=== PATIENT | female | born 1980 | race American Indian/Alaskan Native ===

== ENCOUNTER 2018-10-02 23:01 | Inpatient (IN) | payer MEDICAID ==
[2018-10-02] MEDS ORDERED: D50W (25GM) Syringe IV PRN (23:35)
[2018-10-02] MEDS ORDERED: NACL 0.9% 1000 ML 1,000 ML IV ONE (23:35)
[2018-10-02] MEDS ORDERED: REGLAN IV ONE (23:37)
--- NOTE | 2018-10-02 23:41 | Emergency Department Report ---
ED General Adult HPI - General Chief complaint: Hyperglycemia Stated complaint: HYPERGLYCEMIA Time Seen by Provider: 10/02/18 23:26 Source: patient, EMS Mode of arrival: Stretcher Limitations: No Limitations - History of Present Illness Initial comments: Patient is a 38 years old female with a recent diagnosis of diabetes. Patient is noncompliant with her medication. Patient presented to the ER complaining of nausea vomiting and generalized weakness. Strong smell of acetone in the room. Patient also with coughing. The patient denied any fever or chills. No chest pain or shortness of breath. Severity scale (0 -10): 3 - Related Data Previous Rx's Medication Instructions Recorded Last Taken Type Amoxicillin/Potassium Clav 1 each PO BID #20 tablet 07/13/18 Unknown Rx [Augmentin 875-125 Tablet] Insulin Glargine [Lantus VIAL] 50 units SUB-Q QHS #1 vial 07/13/18 Unknown Rx Insulin Lispro [HumaLOG VIAL] 0 units SQ AC #1 vial 07/13/18 Unknown Rx Polyethylene Glycol 3350 [Miralax 17 gm PO BID PRN #60 powd.pack 07/13/18 Unknown Rx 3350] metFORMIN [Glucophage] 500 mg PO BIDDIAB #60 tablet 07/13/18 Unknown Rx oxyCODONE /ACETAMINOPHEN [Percocet 1 tab PO Q6H PRN #14 tablet 07/13/18 Unknown Rx 5/325 mg] Allergies Allergy/AdvReac Type Severity Reaction Status Date / Time sulfamethoxazole Allergy Anaphylaxis Verified 07/08/18 12:12 [From Bactrim] trimethoprim [From Bactrim] Allergy Anaphylaxis Verified 07/08/18 12:12 ED Review of Systems ROS: Stated complaint: HYPERGLYCEMIA Other details as noted in HPI Comment: All other systems reviewed and negative Constitutional: denies: chills, fever Respiratory: cough. denies: orthopnea, shortness of breath, SOB with exertion, SOB at rest, wheezing Cardiovascular: palpitations. denies: chest pain, dyspnea on exertion Gastrointestinal: abdominal pain (burning sensation), nausea, vomiting. denies: diarrhea, constipation, hematemesis, melena, hematochezia Genitourinary: frequency Musculoskeletal: denies: back pain Neurological: weakness (generalized). denies: headache, numbness, paresthesias, confusion, abnormal gait ED Past Medical Hx - Past Medical History Previous Medical History?: Yes Hx Diabetes: Yes - Surgical History Additional Surgical History: - Social History Smoking Status: Never Smoker Substance Use Type: None - Medications Home Medications: Home Medications Medication Instructions Recorded Confirmed Last Taken Type Amoxicillin/Potassium Clav 1 each PO BID #20 tablet 07/13/18 Unknown Rx [Augmentin 875-125 Tablet] Insulin Glargine [Lantus VIAL] 50 units SUB-Q QHS #1 vial 07/13/18 Unknown Rx Insulin Lispro [HumaLOG VIAL] 0 units SQ AC #1 vial 07/13/18 Unknown Rx Polyethylene Glycol 3350 [Miralax 17 gm PO BID PRN #60 powd.pack 07/13/18 Unknown Rx 3350] metFORMIN [Glucophage] 500 mg PO BIDDIAB #60 tablet 07/13/18 Unknown Rx oxyCODONE /ACETAMINOPHEN [Percocet 1 tab PO Q6H PRN #14 tablet 07/13/18 Unknown Rx 5/325 mg] ED Physical Exam - General Limitations: No Limitations General appearance: alert, anxious, in distress - Head Head exam: Present: atraumatic, normocephalic, normal inspection - Eye Eye exam: Present: normal appearance - ENT ENT exam: Present: mucous membranes dry - Neck Neck exam: Present: normal inspection, full ROM. Absent: tenderness, meningismus, lymphadenopathy, thyromegaly - Respiratory Respiratory exam: Present: normal lung sounds bilaterally. Absent: respiratory distress, wheezes, rales, rhonchi, chest wall tenderness, accessory muscle use, decreased breath sounds, prolonged expiratory - Cardiovascular Cardiovascular Exam: Present: tachycardia - GI/Abdominal GI/Abdominal exam: Present: soft, normal bowel sounds. Absent: distended, tenderness, guarding, rebound, rigid, organomegaly, mass, bruit, pulsatile mass, hernia - Extremities Exam Extremities exam: Present: normal inspection, full ROM, normal capillary refill. Absent: tenderness, pedal edema, calf tenderness - Back Exam Back exam: Present: normal inspection, full ROM. Absent: tenderness, CVA tenderness (R), CVA tenderness (L), muscle spasm, paraspinal tenderness, vertebral tenderness - Neurological Exam Neurological exam: Present: alert, oriented X3, CN II-XII intact - Skin Skin exam: Present: warm, dry, intact ED Course Vital Signs 10/02/18 23:18 Temperature 98.7 F Pulse Rate 124 H Respiratory 22 Rate Blood Pressure 172/116 [Left] O2 Sat by Pulse 100 Oximetry - Reevaluation(s) Reevaluation #1: 10/03/18 00:52 Patient evaluated by me multiple times. Patient stated that she is feeling better. ED Medical Decision Making - Lab Data Result diagrams: 10/02/18 23:59 10/02/18 23:59 - Radiology Data Radiology results: report reviewed - Medical Decision Making Patient is a 38 years old female with a recent diagnosis of diabetes. Patient is noncompliant with her medication. Patient presented to the ER complaining of nausea vomiting and generalized weakness. Strong smell of acetone in the room. Patient also with coughing. The patient denied any fever or chills. No chest pain or shortness of breath. Patient found to be in a DKA. Started on insulin drip and fluids. I discussed the patient is Dr. Swann, she agreed to admit the patient to medical service. Critical Care Time: Yes Critical care time in (mins) excluding proc time.: 30 Critical care attestation.: If time is entered above; I have spent that time in minutes in the direct care of this critically ill patient, excluding procedure time. ED Disposition Clinical Impression: DKA (diabetic ketoacidoses), Hyperkalemia Disposition: DC-09 OP ADMIT IP TO THIS HOSP Is pt being admited?: Yes Condition: Stable Instructions: Diabetic Ketoacidosis (ED) Referrals: PRIMARY CARE, [Primary Care Provider] - 3-5 Days
--- NOTE | 2018-10-03 00:11 | XRay Report ---
FINAL REPORT EXAM: XR CHEST ROUTINE 2V HISTORY: cough, DKA COMPARISON: None available. FINDINGS:: Frontal and lateral views of the chest obtained. Cardiac silhouette is within normal limi ts. No focal consolidation or effusion. No pneumothorax. Visualized bony thorax is grossly intact. IMPRESSION:: No acute findings.
[2018-10-03 00:14] LABS: Basophils # (Auto) 0.1 K/mm3 (0.0-0.1); Basophils % (Auto) 0.6 % (0.0-1.8); Lymphocytes # (Auto) 2.1 K/mm3 (1.2-5.4); Lymphocytes % (Auto) 11.8 % (13.4-35.0); Mean Corpuscular HGB Conc 30 % (30-34); Mean Corpuscular Volume 92 fl (79-97); Monocytes # (Auto) 0.6 K/mm3 (0.0-0.8); Monocytes % (Auto) 3.6 % (0.0-7.3); Platelet Count 232 K/mm3 (140-440); Red Blood Count 5.47 M/mm3 (3.65-5.03); Red Cell Distribution Width 16.6 % (13.2-15.2)
[2018-10-03 00:18] LABS: Hematocrit 50.2 % (30.3-42.9); Hemoglobin 15.2 gm/dl (10.1-14.3)
[2018-10-03] MEDS: HumuLIN R 100 UNITS in NACL 0.9% 99 ML IV SCH ×3 (00:22→17:22)
[2018-10-03 00:43] LABS: BUN/Creatinine Ratio 8; Blood Urea Nitrogen 10 mg/dL (7-17); Calcium 8.8 mg/dL (8.4-10.2); Hemolysis Index 17
[2018-10-03 00:47] LABS: Alanine Aminotransferase 21 units/L (7-56); Albumin 4.3 g/dL (3.9-5)
[2018-10-03 00:51] LABS: Bilirubin,Direct < 0.2 mg/dL (0-0.2)
[2018-10-03] MEDS ORDERED: ZOSYN/NS 3.375GM/50ML 3.375 GM/50 ML BAG IV ONE (01:15)
[2018-10-03 01:21] LABS: Bilirubin,Urine NEG (Negative); Blood,Urine LG (Negative); Color,Urine Straw (Yellow); Mucus,Urine FEW /HPF; RBC,Urine > 182.0 /HPF (0.0-6.0); Urobilinogen,Urine < 2.0 mg/dL (<2.0)
[2018-10-03] MEDS ORDERED: NACL 0.9% 1000 ML 1,000 ML IV ONE ×2 (01:46→03:38)
[2018-10-03] MEDS ORDERED: ZOFRAN IV PRN (01:49)
[2018-10-03] MEDS ORDERED: SODIUM CHLORIDE FLUSH SYRINGE 10 ML IV PRN (01:49)
[2018-10-03] MEDS ORDERED: TYLENOL PO PRN (01:49)
[2018-10-03] MEDS ORDERED: MORPHINE IV PRN (01:49)
[2018-10-03] MEDS ORDERED: REGLAN IV PRN (01:49)
[2018-10-03] MEDS ORDERED: D5W/0.45% NACL/KCL 20 MEQ 20 MEQ/1,000 ML BAG IV SCH (02:00)
[2018-10-03 02:10] LABS: BUN/Creatinine Ratio 8; Blood Urea Nitrogen 10 mg/dL (7-17); Calcium 8.8 mg/dL (8.4-10.2); Hemolysis Index 16
[2018-10-03 03:08] LABS: Blood Urea Nitrogen 10 mg/dL (7-17); Calcium 8.8 mg/dL (8.4-10.2)
--- NOTE | 2018-10-03 03:30 | History and Physical Report ---
History of Present Illness Date of examination: 10/03/18 Chief complaint: Nausea and vomiting History of present illness: Patient is a 38-year-old -Cypriot female with history of diabetes mellitus type 2 who presented to the ED on account of 3 days history of nausea with vomiting. She has associated generalized abdominal pain, morning chest pain, constipation, urinary frequency, chills without fever, shortness of breath, palpitation, headaches and lightheadedness. She denies diaphoresis, leg swelling, cough, sore throats, runny nose or congestion, orthopnea or PND. No diarrhea, bleeding from any orifice, syncope or loss of consciousness. Patient admits to being noncompliant with her medication because according to her she has so many medications and does not know when to take them. Past History Past Medical History: diabetes, GERD Past Surgical History: , Other (Lt ankle surgery) Social history: other (patient smoked cigarettes for 5 years but quit a year ago. She denies alcohol or illicit drug use) Family history: diabetes, hypertension Medications and Allergies Allergies Allergy/AdvReac Type Severity Reaction Status Date / Time sulfamethoxazole Allergy Anaphylaxis Verified 07/08/18 12:12 [From Bactrim] trimethoprim [From Bactrim] Allergy Anaphylaxis Verified 07/08/18 12:12 Home Medications Medication Instructions Recorded Confirmed Last Taken Type Amoxicillin/Potassium Clav 1 each PO BID #20 tablet 07/13/18 Unknown Rx [Augmentin 875-125 Tablet] Insulin Glargine [Lantus VIAL] 50 units SUB-Q QHS #1 vial 07/13/18 Unknown Rx Insulin Lispro [HumaLOG VIAL] 0 units SQ AC #1 vial 07/13/18 Unknown Rx Polyethylene Glycol 3350 [Miralax 17 gm PO BID PRN #60 powd.pack 07/13/18 Unknown Rx 3350] metFORMIN [Glucophage] 500 mg PO BIDDIAB #60 tablet 07/13/18 Unknown Rx oxyCODONE /ACETAMINOPHEN [Percocet 1 tab PO Q6H PRN #14 tablet 07/13/18 Unknown Rx 5/325 mg] Active Meds: Active Medications Acetaminophen (Tylenol) 650 mg PO Q4H PRN PRN Reason: Pain MILD(1-3)/Fever >100.5/SANTOS Dextrose (D50w (25gm) Syringe) 0 ml IV PRN PRN PRN Reason: Hypoglycemia Insulin Human Regular 100 (units/ Sodium Chloride) 100 mls @ 1 mls/hr IV TITR ASHA; Protocol Last Titration: 10/03/18 02:03 Dose: 6 units/hr, 6 mls/hr Documented by: Potassium Chloride/Dextrose/Sod Cl (D5w/0.45% Nacl/Kcl 20 Meq) 20 meq in 1,000 mls @ 125 mls/hr IV DIRECT ASHA Ceftriaxone Sodium (Rocephin/Ns 1 Gm/50 Ml) 1 gm in 50 mls @ 100 mls/hr IV Q24HR ASHA; Protocol Metoclopramide HCl (Reglan) 10 mg IV Q6H PRN PRN Reason: Nausea And Vomiting Morphine Sulfate (Morphine) 2 mg IV Q4H PRN PRN Reason: Pain, Moderate (4-6) Ondansetron HCl (Zofran) 4 mg IV Q8H PRN PRN Reason: Nausea And Vomiting Sodium Chloride (Sodium Chloride Flush Syringe 10 Ml) 10 ml IV BID ASHA Sodium Chloride (Sodium Chloride Flush Syringe 10 Ml) 10 ml IV PRN PRN PRN Reason: LINE FLUSH Review of Systems All systems: negative (except as documented in HPI, all other systems were reviewed and negative) Exam - Constitutional Vitals: Temp Pulse Resp BP Pulse Ox 98.7 F 124 H 22 172/116 100 10/02/18 23:18 10/02/18 23:18 10/02/18 23:18 10/02/18 23:18 10/02/18 23:18 General appearance: Present: no acute distress - EENT Eyes: Present: PERRL, EOM intact ENT: hearing intact, clear oral mucosa - Neck Neck: Present: supple, normal ROM - Respiratory Respiratory effort: normal Respiratory: bilateral: CTA - Cardiovascular Rhythm: regular (tachycardia) Heart Sounds: Present: S1 & S2. Absent: rub, click - Extremities Extremities: No edema Peripheral Pulses: within normal limits - Abdominal General gastrointestinal: Present: soft, non-tender, non-distended, normal bowel sounds Female genitourinary: Present: deferred - Integumentary Integumentary: Present: clear, warm, dry - Musculoskeletal Musculoskeletal: gait normal, strength equal bilaterally - Psychiatric Psychiatric: appropriate mood/affect, intact judgment & insight - Neurologic Neurologic: CNII-XII intact, moves all extremities Results - Labs CBC & Chem 7: 02/26/19 23:59 10/03/18 02:24 Labs: Laboratory Last Values WBC 17.6 K/mm3 (4.5-11.0) H 10/02/18 23:59 RBC 5.47 M/mm3 (3.65-5.03) H 10/02/18 23:59 Hgb 15.2 gm/dl (10.1-14.3) H 10/02/18 23:59 Hct 50.2 % (30.3-42.9) H 10/02/18 23:59 MCV 92 fl (79-97) 10/02/18 23:59 MCH 28 pg (28-32) 10/02/18 23:59 MCHC 30 % (30-34) 10/02/18 23:59 RDW 16.6 % (13.2-15.2) H 10/02/18 23:59 Plt Count 232 K/mm3 (140-440) 10/02/18 23:59 Lymph % (Auto) 11.8 % (13.4-35.0) L 10/02/18 23:59 [place] % (Auto) 3.6 % (0.0-7.3) 10/02/18 23:59 Eos % (Auto) 0.0 % (0.0-4.3) 10/02/18 23:59 Baso % (Auto) 0.6 % (0.0-1.8) 10/02/18 23:59 Lymph # 2.1 K/mm3 (1.2-5.4) 10/02/18 23:59 [place] # 0.6 K/mm3 (0.0-0.8) 10/02/18 23:59 Eos # 0.0 K/mm3 (0.0-0.4) 10/02/18 23:59 Baso # 0.1 K/mm3 (0.0-0.1) 10/02/18 23:59 Seg Neutrophils % 84.0 % (40.0-70.0) H 10/02/18 23:59 Seg Neutrophils # 14.8 K/mm3 (1.8-7.7) H 10/02/18 23:59 Sodium 135 mmol/L (137-145) L 10/03/18 02:24 Potassium 5.1 mmol/L (3.6-5.0) H 10/03/18 01:27 Chloride 104.4 mmol/L (98-107) 10/03/18 02:24 Carbon Dioxide 5 mmol/L (22-30) L* 10/03/18 01:27 Anion Gap 34 mmol/L 10/03/18 01:27 BUN 10 mg/dL (7-17) 10/03/18 02:24 Creatinine 1.2 mg/dL (0.7-1.2) 10/03/18 01:27 Estimated GFR > 60 ml/min 10/03/18 01:27 BUN/Creatinine Ratio 8 % 10/03/18 01:27 Glucose 418 mg/dL (65-100) H 10/03/18 02:24 POC Glucose 382 (70-105) H 10/03/18 03:24 Calcium 8.8 mg/dL (8.4-10.2) 10/03/18 02:24 Phosphorus 5.70 mg/dL (2.5-4.5) H 10/02/18 23:59 Magnesium 2.20 mg/dL (1.7-2.3) 10/02/18 23:59 Total Bilirubin < 0.20 mg/dL (0.1-1.2) 10/02/18 23:59 Direct Bilirubin < 0.2 mg/dL (0-0.2) 10/02/18 23:59 Indirect Bilirubin 0.0 mg/dL 10/02/18 23:59 AST 15 units/L (5-40) 10/02/18 23:59 ALT 21 units/L (7-56) 10/02/18 23:59 Alkaline Phosphatase 189 units/L (35-129) H 10/02/18 23:59 Troponin T < 0.010 ng/mL (0.00-0.029) 10/02/18 23:59 Total Protein 8.1 g/dL (6.3-8.2) 10/02/18 23:59 Albumin 4.3 g/dL (3.9-5) 10/02/18 23:59 Albumin/Globulin Ratio 1.1 % 10/02/18 23:59 Urine Color Straw (Yellow) 10/03/18 00:23 Urine Turbidity Clear (Clear) 10/03/18 00:23 Urine pH 5.0 (5.0-7.0) 10/03/18 00:23 Ur Specific [place] 1.025 (1.003-1.030) 10/03/18 00:23 Urine Protein 100 mg/dl mg/dL (Negative) 10/03/18 00:23 Urine Glucose (UA) >=500 mg/dL (Negative) 10/03/18 00:23 Urine Ketones 80 mg/dL (Negative) 10/03/18 00:23 Urine Blood Lg (Negative) 10/03/18 00:23 Urine Nitrite Neg (Negative) 10/03/18 00:23 Urine Bilirubin Neg (Negative) 10/03/18 00:23 Urine Urobilinogen < 2.0 mg/dL (<2.0) 10/03/18 00:23 Ur Leukocyte Esterase Neg (Negative) 10/03/18 00:23 Urine WBC (Auto) 17.0 /HPF (0.0-6.0) H 10/03/18 00:23 Urine RBC (Auto) > 182.0 /HPF (0.0-6.0) 10/03/18 00:23 U Epithel Cells (Auto) < 1.0 /HPF (0-13.0) 10/03/18 00: Urine Mucus Few /HPF 10/03/18 00:23 Assessment and Plan Assessment and plan: DM2 with DKA -Admit to the ICU on DKA protocol -will check hba1c level Sepsis, probably secondary to UTI -On IV antibiotic with Rocephin -Blood and urine cultures pending Severe metabolic acidosis -Will check ABG to determine if to give IV bicarbonate Medication noncompliance -Diabetic education needed Hyperphosphatemia -We will hydrate patient and monitor level GERD -On Protonix Elevated blood pressure without prior diagnosis of hypertension -On PRN Labetalol DVT prophylaxis with SCD Disposition: I spent 45 minutes providing critical care to this seriously ill patient who requires frequent reassessments of her metabolic profile.
[2018-10-03] MEDS ORDERED: NORMODYNE IV PRN (03:42)
[2018-10-03] MEDS ORDERED: NACL 0.9% 1000 ML 1,000 ML IV SCH (04:00)
[2018-10-03 04:26] LABS: BUN/Creatinine Ratio 8; Hemolysis Index 4
[2018-10-03] MEDS ORDERED: SODIUM BICARBONATE IV SCH (05:00)
[2018-10-03] MEDS ORDERED: D5W IV SCH (05:00)
[2018-10-03] MEDS ORDERED: SODIUM BICARBONATE 150 MEQ, KCL 20 MEQ in D5W 1,000 ML IV SCH (05:00)
[2018-10-03] MEDS ORDERED: KCL IV SCH (05:00)
[2018-10-03] MEDS ORDERED: ZOFRAN ONE (05:40)
[2018-10-03] MEDS ORDERED: NACL 0.9% 1000 ML 1,000 ML ONE (05:40)
[2018-10-03] MEDS ORDERED: PROTONIX IV ONE (05:41)
[2018-10-03] MEDS: PROTONIX IV SCH ×2 (05:53→11:05)
--- NOTE | 2018-10-03 08:13 | Progress Note ---
Assessment and Plan Assessment and plan: Patient is a 38 yo woman with a history of obesity, tobacco dependency, MSSA bilateral leg cellulitis with abscess and Type I DM after DKA episode in 07/2018 who presented to [facility] with n/v/weakness and cough. She was admitted to ICU for DKA with pH of only 6.952/co2 9.5/po2 128/hco3 2.1 on RA. Noncompliance with DM medication documented in ED. -DKA, severe: treat with IV insulin drip with close monitor, IVF -Metabolic acidosis, severe: consult CCM -WBC/Leukocytosis of 17.6, initially, probably Sepsis UTI with pyuria on UA: treat with IV abx, follow cultures -Hyperkalemia: treat the acidosis and follow closely -Uncontrolled DM type 1 with hyperglycemia, acidosis -Malignant Hypertension: treat with iv antihypertensives, while npo -Obesity, weight units is wrong, pt is 219lbs not 219kg: group counselor on lifestyle modifications -Tobacco dependency, quit recently: positive encouragement Prolonged inpatient service 32 minutes History Interval history: Patient was seen and examined. Follow-up on current diagnosis of DKA. Overnight uneventful. Patient denies any chest pain, shortness breath, or severe headaches. Imaging, nursing note, chart, labs and old chart reviewed. Discussed with patient. Hospitalist Physical - Physical exam Narrative exam: Gen: ill appearing, NAD, Awake, Alert, Orientated, HEENT: NCAT, EOMI, PERRL, OP Clear Neck: supple, no adenopathy, no thyromegaly, no JVD CVS/Heart: RRR, normal S1S2, pulses present bilaterally Chest/Lungs: CTA B, Symmetrical chest expansion, good air entry bilaterally GI/Abdomen: soft, NTND, good bowel sounds, no guarding or rebound /Bladder: no suprapubic tenderness, no CVA or paraspinal tenderness Extermity/Skin: no c/c/e, no obvious rash MSK: FROM x 4 Neuro: CN 2-12 grossly intact, no new focal deficits Psych: calm - Constitutional Vitals: Temp Pulse Resp BP Pulse Ox 98.7 F 126 H 27 H 172/116 100 10/03/18 06:38 10/03/18 06:38 10/03/18 06:38 10/03/18 06:38 10/03/18 06:38 General appearance: Present: no acute distress Results - Labs CBC & Chem 7: 10/02/18 23:59 10/03/18 Unknown Labs: Laboratory Last Values WBC 17.6 K/mm3 (4.5-11.0) H 10/02/18 23:59 RBC 5.47 M/mm3 (3.65-5.03) H 10/02/18 23:59 Hgb 15.2 gm/dl (10.1-14.3) H 10/02/18 23:59 Hct 50.2 % (30.3-42.9) H 10/02/18 23:59 MCV 92 fl (79-97) 10/02/18 23:59 MCH 28 pg (28-32) 10/02/18 23:59 MCHC 30 % (30-34) 10/02/18 23:59 RDW 16.6 % (13.2-15.2) H 10/02/18 23:59 Plt Count 232 K/mm3 (140-440) 10/02/18 23:59 Lymph % (Auto) 11.8 % (13.4-35.0) L 10/02/18 23:59 [place] % (Auto) 3.6 % (0.0-7.3) 10/02/18 23:59 Eos % (Auto) 0.0 % (0.0-4.3) 10/02/18 23:59 Baso % (Auto) 0.6 % (0.0-1.8) 10/02/18 23:59 Lymph # 2.1 K/mm3 (1.2-5.4) 10/02/18 23:59 [place] # 0.6 K/mm3 (0.0-0.8) 10/02/18 23:59 Eos # 0.0 K/mm3 (0.0-0.4) 10/02/18 23:59 Baso # 0.1 K/mm3 (0.0-0.1) 10/02/18 23:59 Seg Neutrophils % 84.0 % (40.0-70.0) H 10/02/18 23:59 Seg Neutrophils # 14.8 K/mm3 (1.8-7.7) H 10/02/18 23:59 POC ABG pH 6.952 (7.35-7.45) L 10/03/18 04:04 POC ABG pCO2 9.5 (35-45) L 10/03/18 04:04 POC ABG pO2 128 (80-105) H 10/03/18 04:04 POC ABG HCO3 2.1 10/03/18 04:04 POC ABG Total CO2 < 5 10/03/18 04:04 POC ABG O2 Sat 96 10/03/18 04:04 POC ABG Base Excess -30 10/03/18 04:04 FiO2 21 % 10/03/18 04:04 Sodium 135 mmol/L (137-145) L 10/03/18 02:24 Potassium 5.9 mmol/L (3.6-5.0) H 10/03/18 02:24 Chloride 104.4 mmol/L (98-107) 10/03/18 02:24 Carbon Dioxide 3 mmol/L (22-30) L* 10/03/18 02:24 Anion Gap 34 mmol/L 10/03/18 02:24 BUN 10 mg/dL (7-17) 10/03/18 02:24 Creatinine 1.1 mg/dL (0.7-1.2) 10/03/18 02:24 Estimated GFR > 60 ml/min 10/03/18 02:24 BUN/Creatinine Ratio 8 % 10/03/18 02:24 Glucose 418 mg/dL (65-100) H 10/03/18 02:24 POC Glucose 353 (70-105) H 10/03/18 05:30 Hemoglobin A1c 13.0 % (4-6) H 10/03/18 03:50 Calcium 8.8 mg/dL (8.4-10.2) 10/03/18 02:24 Phosphorus 5.70 mg/dL (2.5-4.5) H 10/02/18 23:59 Magnesium 2.20 mg/dL (1.7-2.3) 10/02/18 23:59 Total Bilirubin < 0.20 mg/dL (0.1-1.2) 10/02/18 23:59 Direct Bilirubin < 0.2 mg/dL (0-0.2) 10/02/18 23:59 Indirect Bilirubin 0.0 mg/dL 10/02/18 23:59 AST 15 units/L (5-40) 10/02/18 23:59 ALT 21 units/L (7-56) 10/02/18 23:59 Alkaline Phosphatase 189 units/L (35-129) H 10/02/18 23:59 Troponin T < 0.010 ng/mL (0.00-0.029) 10/02/18 23:59 Total Protein 8.1 g/dL (6.3-8.2) 10/02/18 23:59 Albumin 4.3 g/dL (3.9-5) 10/02/18 23:59 Albumin/Globulin Ratio 1.1 % 10/02/18 23:59 Urine Color Straw (Yellow) 10/03/18 00:23 Urine Turbidity Clear (Clear) 10/03/18 00:23 Urine pH 5.0 (5.0-7.0) 10/03/18 00:23 Ur Specific [place] 1.025 (1.003-1.030) 10/03/18 00:23 Urine Protein 100 mg/dl mg/dL (Negative) 10/03/18 00:23 Urine Glucose (UA) >=500 mg/dL (Negative) 10/03/18 00:23 Urine Ketones 80 mg/dL (Negative) 10/03/18 00:23 Urine Blood Lg (Negative) 10/03/18 00:23 Urine Nitrite Neg (Negative) 10/03/18 00:23 Urine Bilirubin Neg (Negative) 10/03/18 00:23 Urine Urobilinogen < 2.0 mg/dL (<2.0) 10/03/18 00:23 Ur Leukocyte Esterase Neg (Negative) 10/03/18 00:23 Urine WBC (Auto) 17.0 /HPF (0.0-6.0) H 10/03/18 00:23 Urine RBC (Auto) > 182.0 /HPF (0.0-6.0) 10/03/18 00:23 U Epithel Cells (Auto) < 1.0 /HPF (0-13.0) 10/03/18 00:23 Urine Mucus Few /HPF 10/03/18 00:23
[2018-10-03] MEDS: ROCEPHIN/NS 1 GM/50 ML 1 GM/50 ML BAG IV SCH (10:08)
[2018-10-03] MEDS: SODIUM CHLORIDE FLUSH SYRINGE 10 ML IV SCH (10:15)
[2018-10-03 10:46] LABS: BUN/Creatinine Ratio 7; Blood Urea Nitrogen 7 mg/dL (7-17); Calcium 8.8 mg/dL (8.4-10.2); Hemolysis Index 49
[2018-10-03] MEDS: D5/0.45NS 1,000 ML IV SCH (11:35)
--- NOTE | 2018-10-03 12:28 | Consultation ---
History of Present Illness - Reason for Consult Consult date: 10/03/18 DKA Requesting physician: DEWAYNE PRECIADO - History of Present Illness 38 y/o female admitted with DKA secondary to noncompliance with medical therapy. Found to be in severe metabolic acidosis and required insulin drip hence ICU consult. Patient also found to have A1C of 13 Past History Past Medical History: diabetes, GERD Past Surgical History: , Other (Lt ankle surgery) Social history: other (patient smoked cigarettes for 5 years but quit a year ago. She denies alcohol or illicit drug use) Family history: diabetes, hypertension Medications and Allergies Allergies Allergy/AdvReac Type Severity Reaction Status Date / Time sulfamethoxazole Allergy Anaphylaxis Verified 07/08/18 12:12 [From Bactrim] trimethoprim [From Bactrim] Allergy Anaphylaxis Verified 07/08/18 12:12 Home Medications Medication Instructions Recorded Confirmed Last Taken Type Amoxicillin/Potassium Clav 1 each PO BID #20 tablet 07/13/18 Unknown Rx [Augmentin 875-125 Tablet] Insulin Glargine [Lantus VIAL] 50 units SUB-Q QHS #1 vial 07/13/18 Unknown Rx Insulin Lispro [HumaLOG VIAL] 0 units SQ AC #1 vial 07/13/18 Unknown Rx Polyethylene Glycol 3350 [Miralax 17 gm PO BID PRN #60 powd.pack 07/13/18 Unknown Rx 3350] metFORMIN [Glucophage] 500 mg PO BIDDIAB #60 tablet 07/13/18 Unknown Rx oxyCODONE /ACETAMINOPHEN [Percocet 1 tab PO Q6H PRN #14 tablet 07/13/18 Unknown Rx 5/325 mg] Active Meds: Active Medications Acetaminophen (Tylenol) 650 mg PO Q4H PRN PRN Reason: Pain MILD(1-3)/Fever >100.5/SANTOS Dextrose (D50w (25gm) Syringe) 0 ml IV PRN PRN PRN Reason: Hypoglycemia Insulin Human Regular 100 (units/ Sodium Chloride) 100 mls @ 1 mls/hr IV TITR ASHA; Protocol Last Titration: 10/03/18 12:03 Dose: 4 units/hr, 4 mls/hr Documented by: Ceftriaxone Sodium (Rocephin/Ns 1 Gm/50 Ml) 1 gm in 50 mls @ 100 mls/hr IV Q24HR ASHA; Protocol Last Admin: 10/03/18 10:08 Dose: 100 mls/hr Documented by: Sodium Chloride (Nacl 0.9% 1000 Ml) 1,000 mls @ 250 mls/hr IV DIRECT [facility] Last Admin: 10/03/18 08:50 Dose: 250 mls/hr Documented by: Dextrose/Sodium Chloride (D5/0.45ns) 1,000 mls @ 125 mls/hr IV DIRECT [facility] Last Admin: 10/03/18 11:35 Dose: 125 mls/hr Documented by: Labetalol HCl (Normodyne) 10 mg IV Q6H PRN PRN Reason: Blood Pressure Metoclopramide HCl (Reglan) 10 mg IV Q6H PRN PRN Reason: Nausea And Vomiting Morphine Sulfate (Morphine) 2 mg IV Q4H PRN PRN Reason: Pain, Moderate (4-6) Last Admin: 10/03/18 10:55 Dose: 2 mg Documented by: Ondansetron HCl (Zofran) 4 mg IV Q8H PRN PRN Reason: Nausea And Vomiting Pantoprazole Sodium (Protonix) 40 mg IV QDAY [facility] Last Admin: 10/03/18 11:05 Dose: 40 mg Documented by: Sodium Chloride (Sodium Chloride Flush Syringe 10 Ml) 10 ml IV BID [facility] Last Admin: 10/03/18 10:15 Dose: 10 ml Documented by: Sodium Chloride (Sodium Chloride Flush Syringe 10 Ml) 10 ml IV PRN PRN PRN Reason: LINE FLUSH Exam - Constitutional Vitals: Temp Pulse Resp BP Pulse Ox 98.7 F 126 H 13 172/116 100 10/03/18 06:38 10/03/18 06:38 10/03/18 10:55 10/03/18 06:38 10/03/18 06:38 Results - Labs CBC & Chem 7: 10/02/18 23:59 10/03/18 Unknown Labs: Abnormal lab results 10/02/18 10/02/18 10/02/18 Range/Units 23:11 23:59 23:59 WBC 17.6 H (4.5-11.0) K/mm3 RBC 5.47 H (3.65-5.03) M/mm3 Hgb 15.2 H (10.1-14.3) gm/dl Hct 50.2 H (30.3-42.9) % RDW 16.6 H (13.2-15.2) % Lymph % (Auto) 11.8 L (13.4-35.0) % Seg Neutrophils % 84.0 H (40.0-70.0) % Seg Neutrophils # 14.8 H (1.8-7.7) K/mm3 POC ABG pH (7.35-7.45) POC ABG pCO2 (35-45) POC ABG pO2 (80-105) Sodium (137-145) mmol/L Potassium (3.6-5.0) mmol/L Chloride (98-107) mmol/L Carbon Dioxide (22-30) mmol/L Glucose (65-100) mg/dL POC Glucose 356 H (70-105) Hemoglobin A1c (4-6) % Phosphorus 5.70 H (2.5-4.5) mg/dL Alkaline Phosphatase (35-129) units/L Urine WBC (Auto) (0.0-6.0) /HPF 10/02/18 10/02/18 10/03/18 Range/Units 23:59 23:59 00:23 WBC (4.5-11.0) K/mm3 RBC (3.65-5.03) M/mm3 Hgb (10.1-14.3) gm/dl Hct (30.3-42.9) % RDW (13.2-15.2) % Lymph % (Auto) (13.4-35.0) % Seg Neutrophils % (40.0-70.0) % Seg Neutrophils # (1.8-7.7) K/mm3 POC ABG pH (7.35-7.45) POC ABG pCO2 (35-45) POC ABG pO2 (80-105) Sodium 135 L (137-145) mmol/L Potassium 5.3 H (3.6-5.0) mmol/L Chloride (98-107) mmol/L Carbon Dioxide 5 L* (22-30) mmol/L Glucose 500 H (65-100) mg/dL POC Glucose (70-105) Hemoglobin A1c (4-6) % Phosphorus (2.5-4.5) mg/dL Alkaline Phosphatase 189 H (35-129) units/L Urine WBC (Auto) 17.0 H (0.0-6.0) /HPF 10/03/18 10/03/18 10/03/18 Range/Units 01:27 02:02 02:24 WBC (4.5-11.0) K/mm3 RBC (3.65-5.03) M/mm3 Hgb (10.1-14.3) gm/dl Hct (30.3-42.9) % RDW (13.2-15.2) % Lymph % (Auto) (13.4-35.0) % Seg Neutrophils % (40.0-70.0) % Seg Neutrophils # (1.8-7.7) K/mm3 POC ABG pH (7.35-7.45) POC ABG pCO2 (35-45) POC ABG pO2 (80-105) Sodium 135 L (137-145) mmol/L Potassium 5.1 H 5.9 H (3.6-5.0) mmol/L Chloride (98-107) mmol/L Carbon Dioxide 5 L* 3 L* (22-30) mmol/L Glucose 447 H 418 H (65-100) mg/dL POC Glucose 327 H (70-105) Hemoglobin A1c (4-6) % Phosphorus (2.5-4.5) mg/dL Alkaline Phosphatase (35-129) units/L Urine WBC (Auto) (0.0-6.0) /HPF 10/03/18 10/03/18 10/03/18 Range/Units 03:24 03:50 04:04 WBC (4.5-11.0) K/mm3 RBC (3.65-5.03) M/mm3 Hgb (10.1-14.3) gm/dl Hct (30.3-42.9) % RDW (13.2-15.2) % Lymph % (Auto) (13.4-35.0) % Seg Neutrophils % (40.0-70.0) % Seg Neutrophils # (1.8-7.7) K/mm3 POC ABG pH 6.952 L (7.35-7.45) POC ABG pCO2 9.5 L (35-45) POC ABG pO2 128 H (80-105) Sodium (137-145) mmol/L Potassium (3.6-5.0) mmol/L Chloride (98-107) mmol/L Carbon Dioxide (22-30) mmol/L Glucose (65-100) mg/dL POC Glucose 382 H (70-105) Hemoglobin A1c 13.0 H (4-6) % Phosphorus (2.5-4.5) mg/dL Alkaline Phosphatase (35-129) units/L Urine WBC (Auto) (0.0-6.0) /HPF 10/03/18 10/03/18 10/03/18 Range/Units 05:30 09:24 10:09 WBC (4.5-11.0) K/mm3 RBC (3.65-5.03) M/mm3 Hgb (10.1-14.3) gm/dl Hct (30.3-42.9) % RDW (13.2-15.2) % Lymph % (Auto) (13.4-35.0) % Seg Neutrophils % (40.0-70.0) % Seg Neutrophils # (1.8-7.7) K/mm3 POC ABG pH (7.35-7.45) POC ABG pCO2 (35-45) POC ABG pO2 (80-105) Sodium (137-145) mmol/L Potassium (3.6-5.0) mmol/L Chloride (98-107) mmol/L Carbon Dioxide (22-30) mmol/L Glucose (65-100) mg/dL POC Glucose 353 H 239 H 231 H (70-105) Hemoglobin A1c (4-6) % Phosphorus (2.5-4.5) mg/dL Alkaline Phosphatase (35-129) units/L Urine WBC (Auto) (0.0-6.0) /HPF 10/03/18 10/03/18 10/03/18 Range/Units 11:09 12:05 Unknown WBC (4.5-11.0) K/mm3 RBC (3.65-5.03) M/mm3 Hgb (10.1-14.3) gm/dl Hct (30.3-42.9) % RDW (13.2-15.2) % Lymph % (Auto) (13.4-35.0) % Seg Neutrophils % (40.0-70.0) % Seg Neutrophils # (1.8-7.7) K/mm3 POC ABG pH (7.35-7.45) POC ABG pCO2 (35-45) POC ABG pO2 (80-105) Sodium (137-145) mmol/L Potassium 5.6 H (3.6-5.0) mmol/L Chloride 109.2 H (98-107) mmol/L Carbon Dioxide 5 L* (22-30) mmol/L Glucose 297 H (65-100) mg/dL POC Glucose 235 H 208 H (70-105) Hemoglobin A1c (4-6) % Phosphorus (2.5-4.5) mg/dL Alkaline Phosphatase (35-129) units/L Urine WBC (Auto) (0.0-6.0) /HPF Assessment and Plan 38 y/o with DKA 1. Insulin drip until Anion Gap Closes, q1 hour FSBS 2. Change to D5 once sugar is below 250 3. NPO 4. Diabetic education 5. Weight loss CCT 31 minutes
[2018-10-03 17:06] LABS: BUN/Creatinine Ratio 7; Blood Urea Nitrogen 6 mg/dL (7-17); Calcium 8.9 mg/dL (8.4-10.2); Hemolysis Index 69
[2018-10-03 22:15] LABS: BUN/Creatinine Ratio 7; Blood Urea Nitrogen 6 mg/dL (7-17); Calcium 8.6 mg/dL (8.4-10.2); Hemolysis Index 5
[2018-10-04] MEDS: SODIUM CHLORIDE FLUSH SYRINGE 10 ML IV SCH ×3 (01:21→22:45)
[2018-10-04 01:53] LABS: BUN/Creatinine Ratio 5; Blood Urea Nitrogen 6 mg/dL (7-17); Calcium 8.9 mg/dL (8.4-10.2); Hemolysis Index 96
[2018-10-04] MEDS: D5/0.45NS 1,000 ML IV SCH (02:03)
[2018-10-04] MEDS: PROTONIX IV SCH (09:50)
[2018-10-04] MEDS: ROCEPHIN/NS 1 GM/50 ML 1 GM/50 ML BAG IV SCH (09:50)
[2018-10-04] MEDS ORDERED: PERCOCET 5/325 PO PRN (12:14)
[2018-10-04] MEDS ORDERED: MIRALAX 3350 PO PRN (12:14)
[2018-10-04] MEDS ORDERED: D50W (25GM) Syringe IV PRN (12:19)
--- NOTE | 2018-10-04 12:30 | Progress Note ---
Assessment and Plan Assessment and plan: Patient is a 38 yo woman with a history of obesity, tobacco dependency, MSSA bilateral leg cellulitis with abscess and Type I DM after DKA episode in 07/2018 who [facility] n/v/weakness and cough. She was admitted to ICU for DKA with pH of only 6.952/co2 9.5/po2 128/hco3 2.1 on RA. Noncompliance with DM medication documented in ED. -DKA, severe, corrected anion gap 17: transition to long acting insulin -Metabolic acidosis, severe, improved: monitor BMP -WBC/Leukocytosis of 17.6, initially, probably Sepsis UTI with pyuria on UA: treat with IV abx, follow cultures -Hyperkalemia: treat the acidosis and follow closely -Uncontrolled DM type 1 with hyperglycemia, acidosis -Malignant Hypertension: treat with iv antihypertensives, while npo -Obesity, weight, bmi 32.3: adolescent counselor on lifestyle modifications -Tobacco dependency, quit recently: positive encouragement CCT 35 minutes History Interval history: Patient was seen and examined. Follow-up on current diagnosis of DKA, resolved, asking for food, no n/v. Overnight uneventful. Patient denies any chest pain, shortness breath, or severe headaches. Imaging, nursing note, chart, labs and old chart reviewed. Discussed with patient. Hospitalist Physical - Physical exam Narrative exam: Gen: ill appearing, NAD, Awake, Alert, Orientated, HEENT: NCAT, EOMI, PERRL, OP Clear Neck: supple, no adenopathy, no thyromegaly, no JVD CVS/Heart: RRR, normal S1S2, pulses present bilaterally Chest/Lungs: CTA B, Symmetrical chest expansion, good air entry bilaterally GI/Abdomen: soft, NTND, good bowel sounds, no guarding or rebound /Bladder: no suprapubic tenderness, no CVA or paraspinal tenderness Extermity/Skin: no c/c/e, no obvious rash MSK: FROM x 4 Neuro: CN 2-12 grossly intact, no new focal deficits Psych: calm - Constitutional Vitals: Temp Pulse Resp BP Pulse Ox 97.6 F 65 16 120/71 100 10/04/18 12:00 10/04/18 11:00 10/04/18 11:00 10/04/18 11:00 10/04/18 11:00 General appearance: Present: no acute distress Results - Labs CBC & Chem 7: 10/02/18 23:59 10/04/18 00:34 Labs: Laboratory Last Values WBC 17.6 K/mm3 (4.5-11.0) H 10/02/18 23:59 RBC 5.47 M/mm3 (3.65-5.03) H 10/02/18 23:59 Hgb 15.2 gm/dl (10.1-14.3) H 10/02/18 23:59 Hct 50.2 % (30.3-42.9) H 10/02/18 23:59 MCV 92 fl (79-97) 10/02/18 23:59 MCH 28 pg (28-32) 10/02/18 23:59 MCHC 30 % (30-34) 10/02/18 23:59 RDW 16.6 % (13.2-15.2) H 10/02/18 23:59 Plt Count 232 K/mm3 (140-440) 10/02/18 23:59 Lymph % (Auto) 11.8 % (13.4-35.0) L 10/02/18 23:59 [place] % (Auto) 3.6 % (0.0-7.3) 10/02/18 23: Eos % (Auto) 0.0 % (0.0-4.3) 10/02/18 23:59 Baso % (Auto) 0.6 % (0.0-1.8) 10/02/18 23:59 Lymph # 2.1 K/mm3 (1.2-5.4) 10/02/18 23:59 [place] # 0.6 K/mm3 (0.0-0.8) 10/02/18 23:59 Eos # 0.0 K/mm3 (0.0-0.4) 10/02/18 23: Baso # 0.1 K/mm3 (0.0-0.1) 10/02/18 23:59 Seg Neutrophils % 84.0 % (40.0-70.0) H 10/02/18 23:59 Seg Neutrophils # 14.8 K/mm3 (1.8-7.7) H 10/02/18 23:59 POC ABG pH 6.952 (7.35-7.45) L 10/03/18 04:04 POC ABG pCO2 9.5 (35-45) L 10/03/18 04:04 POC ABG pO2 128 (80-105) H 10/03/18 04:04 POC ABG HCO3 2.1 10/03/18 04:04 POC ABG Total CO2 < 5 10/03/18 04:04 POC ABG O2 Sat 96 10/03/18 04:04 POC ABG Base Excess -30 10/03/18 04:04 FiO2 21 % 10/03/18 04:04 Sodium 137 mmol/L (137-145) 10/04/18 00:34 Potassium 4.6 mmol/L (3.6-5.0) D 10/04/18 00:34 Chloride 107.8 mmol/L (98-107) H 10/04/18 00:34 Carbon Dioxide 12 mmol/L (22-30) L 10/04/18 00:34 Anion Gap 22 mmol/L 10/04/18 00:34 BUN 6 mg/dL (7-17) L 10/04/18 00:34 Creatinine 1.1 mg/dL (0.7-1.2) 10/04/18 00:34 Estimated GFR > 60 ml/min 10/04/18 00:34 BUN/Creatinine Ratio 5 % 10/04/18 00:34 Glucose 170 mg/dL (65-100) H 10/04/18 00:34 POC Glucose 203 (70-105) H 10/04/18 12:09 Hemoglobin A1c 13.0 % (4-6) H 10/03/18 03:50 Calcium 8.9 mg/dL (8.4-10.2) 10/04/18 00:34 Phosphorus 5.70 mg/dL (2.5-4.5) H 10/02/18 23:59 Magnesium 2.20 mg/dL (1.7-2.3) 10/02/18 23:59 Total Bilirubin < 0.20 mg/dL (0.1-1.2) 10/02/18 23:59 Direct Bilirubin < 0.2 mg/dL (0-0.2) 10/02/18 23:59 Indirect Bilirubin 0.0 mg/dL 10/02/18 23:59 AST 15 units/L (5-40) 10/02/18 23:59 ALT 21 units/L (7-56) 10/02/18 23:59 Alkaline Phosphatase 189 units/L (35-129) H 10/02/18 23:59 Troponin T < 0.010 ng/mL (0.00-0.029) 10/02/18 23:59 Total Protein 8.1 g/dL (6.3-8.2) 10/02/18 23:59 Albumin 4.3 g/dL (3.9-5) 10/02/18 23:59 Albumin/Globulin Ratio 1.1 % 10/02/18 23:59 Urine Color Straw (Yellow) 10/03/18 00:23 Urine Turbidity Clear (Clear) 10/03/18 00:23 Urine pH 5.0 (5.0-7.0) 10/03/18 00:23 Ur Specific [place] 1.025 (1.003-1.030) 10/03/18 00:23 Urine Protein 100 mg/dl mg/dL (Negative) 10/03/18 00:23 Urine Glucose (UA) >=500 mg/dL (Negative) 10/03/18 00:23 Urine Ketones 80 mg/dL (Negative) 10/03/18 00:23 Urine Blood Lg (Negative) 10/03/18 00:23 Urine Nitrite Neg (Negative) 10/03/18 00:23 Urine Bilirubin Neg (Negative) 10/03/18 00:23 Urine Urobilinogen < 2.0 mg/dL (<2.0) 10/03/18 00:23 Ur Leukocyte Esterase Neg (Negative) 10/03/18 00:23 Urine WBC (Auto) 17.0 /HPF (0.0-6.0) H 10/03/18 00:23 Urine RBC (Auto) > 182.0 /HPF (0.0-6.0) 10/03/18 00:23 U Epithel Cells (Auto) < 1.0 /HPF (0-13.0) 10/03/18 00:23 Urine Mucus Few /HPF 10/03/18 00:23 Nutrition/Malnutrition Assess - Dietary Evaluation Nutrition/Malnutrition Findings: Nutrition Notes Start: 10/03/18 08:27 Freq: Status: Active Protocol: Document 10/04/18 11:40 CP (Rec: 10/04/18 11:48 CP [id number]) Co-Sign 10/04/18 11:40 LP Nutrition Notes Initial or Follow up Reassessment Current Diagnosis Diabetes Sepsis Other Pertinent Diagnosis SOB, UTI Current Diet NPO Labs/Tests BG 135 Pertinent Medications Insulin Height 5 ft 4 in Weight 85.4 kg [place] Body Weight (kg) 54.54 BMI 32.3 Intake Prior to Admission Poor Weight Status Morbidly Obese Subjective/Other Information Pt reports following a consistent CHO diet until she did not have a fridge. Pt mentions her DKA status was d/ t this circumstance where she ate fast food instead. Pt reports not eating 3 days prior to admission. Pt reported that she has already been educated on the consistent CHO diet. Percent of energy/protein needs met: 0%/0% Burn Absent Trauma Absent #1 Nutrition Diagnosis Inadequate oral intake Etiology DKA As Evidenced by Signs and Symptoms NPO status d/t DKA protocol Diagnosis Progress(for reassessment Continues documentation) Is patient on ventilator? No Is Patient Ambulatory and/or Out of Bed No REE-([facility]-confined to bed) 1831.332 Kcal/Kg value to use for calculation 14 Approximate Energy Requirements Using 1196 kcal/Kg Calculation Used for Recommendations Kcal/kg Additional Notes Pro: 109g (2g/kg IBW) Fluid: 1mL/kcal Nutrition Intervention Goal #1 Diet advancement Follow-Up By: 10/15/18 Additional Comments F/U: Diet advancement
--- NOTE | 2018-10-04 13:05 | Progress Note ---
Assessment and Plan 38 y/o with DKA 1. Long acting insulin 2. Feed patient 3. Transition out of unit Subjective Date of service: 10/04/18 Interval history: No acute events. Anion Gap closing and close enough to normal where we feel safe transitioning to long acting insulin Objective - Constitutional Vitals: Vital Signs - 12hr 10/04/18 10/04/18 10/04/18 02:00 03:00 04:00 Temperature 99.0 F Pulse Rate 74 77 77 Respiratory 14 14 21 Rate Blood Pressure 127/85 134/88 122/80 O2 Sat by Pulse Oximetry 10/04/18 10/04/18 10/04/18 05:00 06:00 07:00 Temperature Pulse Rate 71 68 75 Respiratory 14 14 17 Rate Blood Pressure 128/80 123/86 119/72 O2 Sat by Pulse Oximetry 10/04/18 10/04/18 10/04/18 08:00 08:01 09:00 Temperature 97.8 F Pulse Rate 78 72 Respiratory 16 16 Rate Blood Pressure 127/92 122/81 O2 Sat by Pulse 100 100 Oximetry 10/04/18 10/04/18 10/04/18 10:00 11:00 12:00 Temperature 97.6 F Pulse Rate 66 65 Respiratory 15 16 Rate Blood Pressure 129/84 120/71 O2 Sat by Pulse 100 Oximetry - Labs CBC & Chem 7: 10/02/18 23:59 10/04/18 00:34 Labs: Abnormal lab results 10/03/18 10/03/18 10/03/18 Range/Units 08:12 13:05 14:21 Sodium (137-145) mmol/L Chloride (98-107) mmol/L Carbon Dioxide (22-30) mmol/L BUN (7-17) mg/dL Glucose (65-100) mg/dL POC Glucose 256 H 216 H 256 H (70-105) 10/03/18 10/03/18 10/03/18 Range/Units 15:17 16:05 16:11 Sodium 134 L (137-145) mmol/L Chloride (98-107) mmol/L Carbon Dioxide 6 L* (22-30) mmol/L BUN 6 L (7-17) mg/dL Glucose 242 H (65-100) mg/dL POC Glucose 230 H 220 H (70-105) 10/03/18 10/03/18 10/03/18 Range/Units 17:24 18:25 19:29 Sodium (137-145) mmol/L Chloride (98-107) mmol/L Carbon Dioxide (22-30) mmol/L BUN (7-17) mg/dL Glucose (65-100) mg/dL POC Glucose 192 H 171 H 150 H (70-105) 10/03/18 10/03/18 10/03/18 Range/Units 20:30 21:27 21:27 Sodium 136 L (137-145) mmol/L Chloride 109.3 H (98-107) mmol/L Carbon Dioxide 10 L (22-30) mmol/L BUN 6 L (7-17) mg/dL Glucose 195 H (65-100) mg/dL POC Glucose 173 H 185 H (70-105) 10/03/18 10/03/18 10/04/18 Range/Units 22:00 23:18 00:10 Sodium (137-145) mmol/L Chloride (98-107) mmol/L Carbon Dioxide (22-30) mmol/L BUN (7-17) mg/dL Glucose (65-100) mg/dL POC Glucose 169 H 164 H 208 H (70-105) 10/04/18 10/04/18 10/04/18 Range/Units 00:34 01:10 01:59 Sodium (137-145) mmol/L Chloride 107.8 H (98-107) mmol/L Carbon Dioxide 12 L (22-30) mmol/L BUN 6 L (7-17) mg/dL Glucose 170 H (65-100) mg/dL POC Glucose 143 H 106 H (70-105) 10/04/18 10/04/18 10/04/18 Range/Units 03:03 04:07 05:07 Sodium (137-145) mmol/L Chloride (98-107) mmol/L Carbon Dioxide (22-30) mmol/L BUN (7-17) mg/dL Glucose (65-100) mg/dL POC Glucose 117 H 134 H 156 H (70-105) 10/04/18 10/04/18 10/04/18 Range/Units 06:17 07:38 08:33 Sodium (137-145) mmol/L Chloride (98-107) mmol/L Carbon Dioxide (22-30) mmol/L BUN (7-17) mg/dL Glucose (65-100) mg/dL POC Glucose 145 H 181 H 108 H (70-105) 10/04/18 10/04/18 Range/Units 10:44 12:09 Sodium (137-145) mmol/L Chloride (98-107) mmol/L Carbon Dioxide (22-30) mmol/L BUN (7-17) mg/dL Glucose (65-100) mg/dL POC Glucose 135 H 203 H (70-105) Medications & Allergies - Medications Allergies/Adverse Reactions: Allergies sulfamethoxazole [From Bactrim] Allergy (Verified 07/08/18 12:12) Anaphylaxis trimethoprim [From Bactrim] Allergy (Verified 07/08/18 12:12) Anaphylaxis Home Medications: Home Medications Medication Instructions Recorded Confirmed Last Taken Type Amoxicillin/Potassium Clav 1 each PO BID #20 tablet 07/13/18 Unknown Rx [Augmentin 875-125 Tablet] Insulin Glargine [Lantus VIAL] 50 units SUB-Q QHS #1 vial 07/13/18 Unknown Rx Insulin Lispro [HumaLOG VIAL] 0 units SQ AC #1 vial 07/13/18 Unknown Rx Polyethylene Glycol 3350 [Miralax 17 gm PO BID PRN #60 powd.pack 07/13/18 Unknown Rx 3350] metFORMIN [Glucophage] 500 mg PO BIDDIAB #60 tablet 07/13/18 Unknown Rx oxyCODONE /ACETAMINOPHEN [Percocet 1 tab PO Q6H PRN #14 tablet 07/13/18 Unknown Rx 5/325 mg] Active Medications: Generic Name Dose Route Start Last Admin Trade Name Freq PRN Reason Stop Dose Admin Acetaminophen 650 mg 10/03/18 01:49 Tylenol PO Q4H PRN Pain MILD(1-3)/Fever >100.5/SANTOS Dextrose 50 ml 10/04/18 12:19 D50w (25gm) Syringe IV PRN PRN Hypoglycemia Ceftriaxone Sodium 1 gm in 50 mls @ 100 mls/hr 10/03/18 10:00 10/04/18 09:50 Rocephin/Ns 1 Gm/50 Ml IV 100 mls/hr Q24HR ASHA Administration Protocol Sodium Chloride 1,000 mls @ 250 mls/hr 10/03/18 04:00 10/03/18 08:50 Nacl 0.9% 1000 Ml IV 250 mls/hr DIRECT ASHA Administration Insulin Glargine 25 units 10/05/18 13:02 Lantus SUB-Q QAMDIAB ASHA Insulin Human Lispro 0 unit 10/04/18 16:30 Humalog SUB-Q ACHS [facility] Protocol Labetalol HCl 10 mg 10/03/18 03:42 Normodyne IV Q6H PRN Blood Pressure Metoclopramide HCl 10 mg 10/03/18 01:49 Reglan IV Q6H PRN Nausea And Vomiting Morphine Sulfate 2 mg 10/03/18 01:49 10/03/18 10:55 Morphine IV 2 mg Q4H PRN Administration Pain, Moderate (4-6) Ondansetron HCl 4 mg 10/03/18 01:49 Zofran IV Q8H PRN Nausea And Vomiting Oxycodone/Acetaminophen 1 tab 10/04/18 12:14 Percocet 5/325 PO Q6H PRN Pain, Moderate (4-6) Pantoprazole Sodium 40 mg 10/03/18 03:30 10/04/18 09:50 Protonix IV 40 mg QDAY ASHA Administration Polyethylene Glycol 17 gm 10/04/18 12:14 Miralax 3350 PO BID PRN Constipation Sodium Chloride 10 ml 10/03/18 10:00 10/04/18 09:50 Sodium Chloride Flush Syringe 10 Ml IV 10 ml BID ASHA Administration Sodium Chloride 10 ml 10/03/18 01:49 Sodium Chloride Flush Syringe 10 Ml IV PRN PRN LINE FLUSH
[2018-10-04] MEDS: LANTUS SUB-Q SCH (14:25)
[2018-10-04] MEDS: HumaLOG SUB-Q SCH ×2 (16:58→22:45)
[2018-10-05 07:14] VITALS: BP 108/76
[2018-10-05] MEDS ORDERED: LANTUS SUB-Q SCH (08:00)
[2018-10-05] MEDS: HumaLOG SUB-Q SCH ×2 (08:44→12:24)
[2018-10-05] MEDS: LANTUS SUB-Q SCH (08:45)
[2018-10-05] MEDS: ROCEPHIN/NS 1 GM/50 ML 1 GM/50 ML BAG IV SCH (10:10)
[2018-10-05] MEDS: SODIUM CHLORIDE FLUSH SYRINGE 10 ML IV SCH (10:15)
--- NOTE | 2018-10-05 10:47 | Discharge Summary ---
Providers - Providers Date of Admission: 10/03/18 01:49 Date of discharge: 10/05/18 Attending physician: DEWAYNE PRECIADO Primary care physician: [employer] Hospitalization Condition: Stable Hospital course: Patient is a 38 yo woman with a history of obesity, tobacco dependency, MSSA bilateral leg cellulitis with abscess and Type I DM after DKA episode in 07/2018 who presented to [facility] with n/v/weakness and cough. She was admitted to ICU for DKA with pH of only 6.952/co2 9.5/po2 128/hco3 2.1 on RA. Noncompliance with DM medication documented in ED. -DKA, severe, corrected anion gap 17: transition to long acting insulin -Metabolic acidosis, severe, improved: monitor BMP -WBC/Leukocytosis of 17.6, initially, probably Sepsis UTI with pyuria on UA: treat with IV abx, follow cultures -Hyperkalemia: treat the acidosis and follow closely -Uncontrolled DM type 1 with hyperglycemia, acidosis -Malignant Hypertension: treat with iv antihypertensives, while npo -Obesity, weight, bmi 32.3: summer camp counselor on lifestyle modifications -Tobacco dependency, quit recently: positive encouragement Disposition: [id number] TO HOME OR SELFCARE Time spent for discharge: 34 minutes Core Measure Documentation - Palliative Care Palliative Care/ Comfort Measures: Not Applicable - Core Measures Any of the following diagnoses?: none - VTE Discharge Requirements Deep Vein Thrombosis/Pulmonary Embolism Present on Admission: No Has pt received <5 days of overlap therapy or INR<2.0: No Anticoagulant overlap therapy prescribed at discharge: No Contraindication No Overlap Therapy order at DC: Not Indicated Exam - Physical Exam Narrative exam: Gen: ill appearing, NAD, Awake, Alert, Orientated, HEENT: NCAT, EOMI, PERRL, OP Clear Neck: supple, no adenopathy, no thyromegaly, no JVD CVS/Heart: RRR, normal S1S2, pulses present bilaterally Chest/Lungs: CTA B, Symmetrical chest expansion, good air entry bilaterally GI/Abdomen: soft, NTND, good bowel sounds, no guarding or rebound /Bladder: no suprapubic tenderness, no CVA or paraspinal tenderness Extermity/Skin: no c/c/e, no obvious rash MSK: FROM x 4 Neuro: CN 2-12 grossly intact, no new focal deficits Psych: calm - Constitutional Vitals: Temp Pulse Resp BP Pulse Ox 97.7 F 85 18 108/76 100 10/05/18 05:10 10/05/18 05:10 10/05/18 05:10 10/05/18 05:10 10/05/18 05:10 Plan Activity: other (no strenous activity unless cleared by PCP) Diet: diabetic Special Instructions: record blood sugar diary (3 times a day) Follow up with: PRIMARY MD REID [Primary Care Provider] - 3-5 Days CLINT BARRETT MD [Staff Physician] - 7 Days Prescriptions: Insulin Glargine [Lantus VIAL] 30 units SUB-Q QAMDIAB #1 vial
== END 2018-10-05 13:00 | disposition home or self-care (01) | DRG 871 ==
LOC: ED 23:01 → CC1 10-03 01:49 → 3A 10-04 18:56
PROVIDERS: ADMIT Internal Medicine; ATTEND Internal Medicine
PROC: 4A033R1 Measurement of Arterial Saturation, Peripheral, Percutaneous Approach (ICD-10-PCS; principal; 2018-10-03)
DX: A41.9 Sepsis, unspecified organism (principal); E11.10 Type 2 diabetes mellitus with ketoacidosis without coma; N39.0 Urinary tract infection, site not specified; I10 Essential (primary) hypertension; E66.9 Obesity, unspecified; E87.5 Hyperkalemia; K21.9 Gastro-esophageal reflux disease without esophagitis; E83.39 Other disorders of phosphorus metabolism; Z91.14 Patient's other noncompliance with medication regimen; Z79.4 Long term (current) use of insulin; Z88.2 Allergy status to sulfonamides; Z88.8 Allergy status to other drugs, medicaments and biological substances; Z83.3 Family history of diabetes mellitus; Z82.49 Family history of ischemic heart disease and other diseases of the circulatory system; Z87.891 Personal history of nicotine dependence; Z68.32 Body mass index [BMI] 32.0-32.9, adult; Z71.3 Dietary counseling and surveillance
CPT/HCPCS: 36415; 36600; 71046; 80048; 80076; 81001; 82803; 82962; 83036; 83735; 84100; 84484; 85025; 87040; 87086; 87116; 93005; 93010; 96361; 96365; 96367; 96375; G0378; C9113; J0696; J1815; J2270; J2405; J2543; J2765; J3480; J7030; J7070

== ENCOUNTER 2022-01-18 08:59 | Inpatient (IN) | payer MEDICAID ==
[2022-01-18] MEDS ORDERED: ONDANSETRON 4 MG/2 ML INJ IV ONE (11:00)
[2022-01-18] MEDS ORDERED: SODIUM CHLORIDE 0.9% 1000 ML 1,000 ML IV ONE ×2 (11:00→14:48)
[2022-01-18] MEDS ORDERED: INSULIN REGULAR, HUMAN 100 UNITS/1 ML IV ONE (11:01)
[2022-01-18] MEDS ORDERED: INSULIN REGULAR, HUMAN 100 UNITS/1 ML SUB-Q ONE (11:01)
--- NOTE | 2022-01-18 11:07 | Emergency Department Report ---
<YEFRI COLON - Last Filed: 01/18/22 14:50> ED General Adult HPI - General Chief complaint: Hyperglycemia Stated complaint: HYPERGLYCEMIA,N/V Time Seen by Provider: 01/18/22 09:33 Source: patient, EMS Mode of arrival: Stretcher Limitations: No Limitations - History of Present Illness Initial comments: 41-year-old female with a history of diabetes who now presents with elevated blood sugar associated with generalized muscle aches and headache with back pain for couple of days. Patient also reported nausea without emesis. No fever or chills reported. Patient denies any other modifying or associated factors. - Related Data Previous Rx's Medication Instructions Recorded Last Taken Type Acetaminophen [Acetaminophen TAB] 650 mg PO Q4H PRN #15 tablet 10/05/18 Unknown Rx Insulin Glargine [Lantus VIAL] 30 units SUB-Q QAMDIAB #1 vial 10/05/18 Unknown Rx Insulin Lispro [HumaLOG VIAL] 1 dose SQ AC PRN #1 vial 10/05/18 Unknown Rx Allergies Allergy/AdvReac Type Severity Reaction Status Date / Time sulfamethoxazole Allergy Anaphylaxis Verified 01/18/22 09:02 [From Bactrim] trimethoprim [From Bactrim] Allergy Anaphylaxis Verified 01/18/22 09:02 ED Review of Systems Comment: All other systems reviewed and negative Constitutional: weakness Gastrointestinal: nausea ED Past Medical Hx - Past Medical History Previous Medical History?: Yes Hx Congestive Heart Failure: No Hx Diabetes: Yes Hx Asthma: No Hx COPD: No Hx HIV: No - Surgical History Past Surgical History?: Yes Additional Surgical History: - Social History Smoking Status: Current Every Day Smoker - Medications Home Medications: Home Medications Medication Instructions Recorded Confirmed Last Taken Type Acetaminophen [Acetaminophen TAB] 650 mg PO Q4H PRN #15 tablet 10/05/18 Unknown Rx Insulin Glargine [Lantus VIAL] 30 units SUB-Q QAMDIAB #1 vial 10/05/18 Unknown Rx Insulin Lispro [HumaLOG VIAL] 1 dose SQ AC PRN #1 vial 10/05/18 Unknown Rx ED Physical Exam - General Limitations: No Limitations General appearance: alert, in no apparent distress - Head Head exam: Present: normal inspection - Eye Eye exam: Present: normal appearance Pupils: Present: normal accommodation - ENT ENT exam: Present: normal exam, normal orophraynx, mucous membranes moist - Neck Neck exam: Present: normal inspection, full ROM. Absent: tenderness - Respiratory Respiratory exam: Present: normal lung sounds bilaterally. Absent: respiratory distress, accessory muscle use - Cardiovascular Cardiovascular Exam: Present: regular rate, normal rhythm, normal heart sounds - GI/Abdominal GI/Abdominal exam: Present: soft, normal bowel sounds. Absent: tenderness - Extremities Exam Extremities exam: Present: normal inspection. Absent: tenderness - Back Exam Back exam: Present: normal inspection - Neurological Exam Neurological exam: Present: alert, oriented X3 - Psychiatric Psychiatric exam: Present: normal affect, normal mood - Skin Skin exam: Present: warm, normal color ED Course - Reevaluation(s) Reevaluation #1: 01/18/22 11:05 here with nausea without emesis and with elevated blood sugar -- with h/o DM-- patient probably not feeling good due to her hyperglycemia-- so will start by hydrating with ivf ns 1L bolus x 1 and given zofran and will order routine labs for any infectious disease or electrolyte abnormality Reevaluation #2: 01/18/22 12:31 Noted with blood sugar of 490, sodium of 133 mg/dL, potassium of 3.3 and bicarb of 6 with elevated H&H at 17.1/56.5.--We will go ahead and continue IV fluid rehydration and continue to monitor progress. Reevaluation #3: 01/18/22 14:57 noted with elevated anion cap 34 -- will go ahead and start dka protocol-- ED Medical Decision Making - Lab Data Result diagrams: 01/18/22 10:47 01/18/22 10:47 ED Disposition Clinical Impression: DKA (diabetic ketoacidosis) Qualifiers: Diabetes mellitus type: other specified (including CODY) Diabetes mellitus complication detail: without coma Qualified Code(s): E13.10 - Other specified diabetes mellitus with ketoacidosis without coma Disposition: 09 ADMITTED INPATIENT Is pt being admited?: No Does the pt Need Aspirin: No Condition: Fair Instructions: Diabetic Ketoacidosis (ED) Referrals: CLINT BARRETT MD [Primary Care Provider] - 3-5 Days <ANTHONY ALSTON - Last Filed: 01/18/22 16:22> ED Review of Systems ROS: Stated complaint: HYPERGLYCEMIA,N/V Other details as noted in HPI ED Course Vital Signs 01/18/22 01/18/22 01/18/22 08:59 09:40 09:45 Temperature 98 F Pulse Rate 120 H 127 H 126 H Respiratory 22 25 H Rate Blood Pressure 141/95 Blood Pressure 140/98 [Left] O2 Sat by Pulse 98 98 99 Oximetry 01/18/22 01/18/22 01/18/22 10:01 10:18 10:38 Temperature Pulse Rate 129 H Respiratory 24 Rate Blood Pressure 137/96 137/96 137/96 Blood Pressure [Left] O2 Sat by Pulse 100 88 82 L Oximetry 01/18/22 01/18/22 01/18/22 10:50 11:07 11:15 Temperature Pulse Rate 128 H Respiratory 19 Rate Blood Pressure 137/96 137/96 154/91 Blood Pressure [Left] O2 Sat by Pulse 80 L 84 94 Oximetry 01/18/22 01/18/22 01/18/22 11:31 11:45 12:00 Temperature Pulse Rate 128 H 123 H 121 H Respiratory 27 H 25 H 24 Rate Blood Pressure 143/95 137/96 137/89 Blood Pressure [Left] O2 Sat by Pulse 100 100 Oximetry 01/18/22 01/18/22 01/18/22 12:15 12:31 12:45 Temperature Pulse Rate 123 H 122 H 125 H Respiratory 28 H 19 27 H Rate Blood Pressure 137/89 137/89 137/89 Blood Pressure [Left] O2 Sat by Pulse 100 99 99 Oximetry 01/18/22 01/18/22 01/18/22 13:04 13:15 13:31 Temperature Pulse Rate 128 H 121 H 121 H Respiratory 29 H 26 H 50 H Rate Blood Pressure 146/90 134/90 135/86 Blood Pressure [Left] O2 Sat by Pulse 100 99 99 Oximetry 01/18/22 01/18/22 01/18/22 13:45 14:01 14:15 Temperature Pulse Rate 122 H 123 H 137 H Respiratory 26 H 26 H 21 Rate Blood Pressure 135/86 133/94 133/94 Blood Pressure [Left] O2 Sat by Pulse 99 100 100 Oximetry 01/18/22 14:31 Temperature Pulse Rate 126 H Respiratory 25 H Rate Blood Pressure 143/89 Blood Pressure [Left] O2 Sat by Pulse 99 Oximetry ED Medical Decision Making - Lab Data Result diagrams: 01/18/22 10:47 01/18/22 10:47 Critical care attestation.: If time is entered above; I have spent that time in minutes in the direct care of this critically ill patient, excluding procedure time. ED Disposition Is pt being admited?: Yes Does the pt Need Aspirin: No
[2022-01-18 11:16] LABS: Basophils % (Auto) 0.5 % (0.0-1.8); Lymphocytes # (Auto) 0.8 K/mm3 (1.2-5.4); Lymphocytes % (Auto) 9.4 % (13.4-35.0); Mean Corpuscular HGB Conc 30 % (30-34); Mean Corpuscular Volume 94 fl (79-97); Monocytes # (Auto) 0.8 K/mm3 (0.0-0.8); Monocytes % (Auto) 8.7 % (0.0-7.3); Platelet Count 174 K/mm3 (140-440); Red Blood Count 6.04 M/mm3 (3.65-5.03); Red Cell Distribution Width 15.3 % (13.2-15.2)
[2022-01-18 11:28] LABS: Hemoglobin 17.1 gm/dl (10.1-14.3)
[2022-01-18 11:29] LABS: Hematocrit 56.5 % (30.3-42.9)
[2022-01-18 11:40] LABS: Alanine Aminotransferase 27 units/L (7-56); Albumin 4.6 g/dL (3.9-5); BUN/Creatinine Ratio 13; Blood Urea Nitrogen 14 mg/dL (7-17); Calcium 9.3 mg/dL (8.4-10.2); Hemolysis Index 10
[2022-01-18 13:44] LABS: Bilirubin,Urine NEG (Negative); Blood,Urine SM (Negative); Color,Urine Straw (Yellow); Mucus,Urine FEW /HPF; RBC,Urine < 1.0 /HPF (0.0-6.0); Urobilinogen,Urine < 2.0 mg/dL (<2.0)
[2022-01-18 13:52] LABS: WBC,Urine < 1.0 /HPF (0.0-6.0)
[2022-01-18] MEDS ORDERED: DEXTROSE 50% IN WATER (25GM) 50 ML SYRINGE IV PRN (14:48)
[2022-01-18] MEDS ORDERED: INSULIN REGULAR, HUMAN 100 UNITS in SODIUM CHLORIDE 0.9% 99 ML IV SCH ×2 (15:00→23:00)
--- NOTE | 2022-01-18 15:48 | XRay Report ---
CHEST 1 VIEW 01/18/2022 2:39 PM INDICATION / CLINICAL INFORMATION: elevated BNP. COMPARISON: 10/02/18 FINDINGS: SUPPORT DEVICES: None. HEART / MEDIASTINUM: No significant abnormality. LUNGS / PLEURA: No significant pulmonary or pleural abnormality. No pneumothorax. ADDITIONAL FINDINGS: No significant additional findings. IMPRESSION: 1. No acute findings. Signer Name: Garth Gandhi MD Signed: 01/18/2022 3:43 PM Workstation Name: [id number]
[2022-01-18 17:31] LABS: BUN/Creatinine Ratio 12; Blood Urea Nitrogen 13 mg/dL (7-17); Calcium 8.3 mg/dL (8.4-10.2); Hemolysis Index 90
[2022-01-18 20:10] LABS: BUN/Creatinine Ratio 12; Blood Urea Nitrogen 12 mg/dL (7-17); Calcium 8.5 mg/dL (8.4-10.2); Hemolysis Index 45
[2022-01-18] MEDS ORDERED: MORPHINE 2 MG/1 ML INJ IV PRN (22:51)
[2022-01-18] MEDS ORDERED: ACETAMINOPHEN 325 MG TAB PO PRN (22:51)
[2022-01-18] MEDS ORDERED: METOCLOPRAMIDE 10 MG/2 ML INJ IV PRN (22:51)
[2022-01-18] MEDS ORDERED: ONDANSETRON 4 MG/2 ML INJ IV PRN (22:51)
--- NOTE | 2022-01-18 23:00 | History and Physical Report ---
History of Present Illness Date of examination: 01/18/22 Date of admission: 01/18/2022 Chief complaint: Generalized weakness and nausea for 3 days History of present illness: 41-year-old female with history of diabetes and insulin-dependent presents with multiple aches and headache and generalized weakness. Also severe nausea but no vomiting. No fever or chills. Patient states that she has been compliant with her insulin. Patient is on glargine-Lantus 30 units in the morning and Humalog with before each meal. Patient is not on continuous glucose monitoring. - Past Medical History Previous Medical History?: Yes -- Insulin-dependent diabetes - Surgical History Past Surgical History?: Yes Additional Surgical History: - Social History Smoking Status: Current Every Day Smoker - Medications Home Medications: Home Medications Medication Instructions Recorded Confirmed Last Taken Type Acetaminophen [Acetaminophen TAB] 650 mg PO Q4H PRN #15 tablet 10/05/18 Unknown Rx Insulin Glargine [Lantus VIAL] 30 units SUB-Q QAMDIAB #1 vial 10/05/18 Unknown Rx Insulin Lispro [HumaLOG VIAL] 1 dose SQ AC PRN #1 vial 10/05/18 Unknown Rx Review of Systems Comment: All other systems reviewed and negative Constitutional: weakness Gastrointestinal: nausea Medications and Allergies Allergies Allergy/AdvReac Type Severity Reaction Status Date / Time sulfamethoxazole Allergy Anaphylaxis Verified 01/18/22 09:02 [From Bactrim] trimethoprim [From Bactrim] Allergy Anaphylaxis Verified 01/18/22 09:02 Home Medications Medication Instructions Recorded Confirmed Last Taken Type Acetaminophen [Acetaminophen TAB] 650 mg PO Q4H PRN #15 tablet 10/05/18 Unknown Rx Insulin Glargine [Lantus VIAL] 30 units SUB-Q QAMDIAB #1 vial 10/05/18 Unknown Rx Insulin Lispro [HumaLOG VIAL] 1 dose SQ AC PRN #1 vial 10/05/18 Unknown Rx Active Meds: Active Medications Dextrose (Dextrose 50% In Water (25gm) 50 Ml Syringe) 0 ml IV Q30MIN PRN; Protocol PRN Reason: Hypoglycemia Insulin Human Regular 100 (units/ Sodium Chloride) 100 mls @ 1 mls/hr IV TITR ASHA; Protocol Last Titration: 01/18/22 19:13 Dose: 6 units/hr, 6 mls/hr Exam - Constitutional Vitals: Temp Pulse Resp BP Pulse Ox 98 F 118 H 21 127/85 96 01/18/22 08:59 01/18/22 20:15 01/18/22 20:15 01/18/22 20:15 01/18/22 20:15 General appearance: Present: mild distress, well-nourished - EENT Eyes: Present: PERRL ENT: hearing intact, clear oral mucosa, other (Dry mucous membranes) - Neck Neck: Present: supple, normal ROM - Respiratory Respiratory effort: normal Respiratory: bilateral: CTA - Cardiovascular Heart rate: 78 Rhythm: regular Heart Sounds: Present: S1 & S2. Absent: rub, click - Extremities Extremities: pulses symmetrical, No edema Peripheral Pulses: within normal limits - Abdominal General gastrointestinal: Present: soft, non-tender, non-distended, normal bowel sounds Female genitourinary: Present: normal - Integumentary Integumentary: Present: clear, warm, dry - Musculoskeletal Musculoskeletal: gait normal, strength equal bilaterally - Psychiatric Psychiatric: appropriate mood/affect, intact judgment & insight - Neurologic Neurologic: CNII-XII intact, moves all extremities - Allied Health Allied health notes reviewed: nursing, case management Results - Labs CBC & Chem 7: 01/18/22 10:47 01/18/22 23:37 Labs: Laboratory Last Values WBC 8.7 K/mm3 (4.5-11.0) 01/18/22 10:47 RBC 6.04 M/mm3 (3.65-5.03) H 01/18/22 10:47 Hgb 17.1 gm/dl (10.1-14.3) H 01/18/22 10:47 Hct 56.5 % (30.3-42.9) H* 01/18/22 10:47 MCV 94 fl (79-97) 01/18/22 10:47 MCH 28 pg (28-32) 01/18/22 10:47 MCHC 30 % (30-34) 01/18/22 10:47 RDW 15.3 % (13.2-15.2) H 01/18/22 10:47 Plt Count 174 K/mm3 (140-440) 01/18/22 10:47 Lymph % (Auto) 9.4 % (13.4-35.0) L 01/18/22 10:47 [place] % (Auto) 8.7 % (0.0-7.3) H 01/18/22 10:47 Eos % (Auto) 0.0 % (0.0-4.3) 01/18/22 10:47 Baso % (Auto) 0.5 % (0.0-1.8) 01/18/22 10:47 Lymph # (Auto) 0.8 K/mm3 (1.2-5.4) L 01/18/22 10:47 [place] # (Auto) 0.8 K/mm3 (0.0-0.8) 01/18/22 10:47 Eos # (Auto) 0.0 K/mm3 (0.0-0.4) 01/18/22 10:47 Baso # (Auto) 0.0 K/mm3 (0.0-0.1) 01/18/22 10:47 Seg Neutrophils % 81.4 % (40.0-70.0) H 01/18/22 10:47 Seg Neutrophils # 7.1 K/mm3 (1.8-7.7) 01/18/22 10:47 VBG pH 7.041 (7.320-7.420) L* 01/18/22 16:51 Sodium 134 mmol/L (137-145) L 01/18/22 19:37 Potassium 5.1 mmol/L (3.6-5.0) H D 01/18/22 19:37 Chloride 107.0 mmol/L (98-107) 01/18/22 19:37 Carbon Dioxide 5 mmol/L (22-30) L* 01/18/22 19:37 Anion Gap 27 mmol/L 01/18/22 19:37 BUN 12 mg/dL (7-17) 01/18/22 19:37 Creatinine 1.0 mg/dL (0.6-1.2) 01/18/22 19:37 Estimated GFR > 60 ml/min 01/18/22 19:37 BUN/Creatinine Ratio 12 % 01/18/22 19:37 Glucose 291 mg/dL (65-100) H 01/18/22 19:37 POC Glucose 246 mg/dL (70-105) H 01/18/22 21:00 Calcium 8.5 mg/dL (8.4-10.2) 01/18/22 19:37 Phosphorus 3.30 mg/dL (2.5-4.5) 01/18/22 16:51 Magnesium 2.00 mg/dL (1.7-2.3) 01/18/22 16:51 Total Bilirubin < 0.20 mg/dL (0.1-1.2) 01/18/22 10:47 AST 24 units/L (5-40) 01/18/22 10:47 ALT 27 units/L (7-56) 01/18/22 10:47 Alkaline Phosphatase 178 units/L (35-129) H 01/18/22 10:47 Total Protein 9.0 g/dL (6.3-8.2) H 01/18/22 10:47 Albumin 4.6 g/dL (3.9-5) 01/18/22 10:47 Albumin/Globulin Ratio 1.0 % 01/18/22 10:47 Urine Color Straw (Yellow) 01/18/22 13:05 Urine Turbidity Clear (Clear) 01/18/22 13:05 Urine pH 5.0 (5.0-7.0) 01/18/22 13:05 Ur Specific [place] 1.015 (1.003-1.030) 01/18/22 13:05 Urine Protein 30 mg/dl mg/dL (Negative) 01/18/22 13:05 Urine Glucose (UA) >=500 mg/dL (Negative) 01/18/22 13:05 Urine Ketones 80 mg/dL (Negative) 01/18/22 13:05 Urine Blood Sm (Negative) 01/18/22 13:05 Urine Nitrite Neg (Negative) 01/18/22 13:05 Urine Bilirubin Neg (Negative) 01/18/22 13:05 Urine Urobilinogen < 2.0 mg/dL (<2.0) 01/18/22 13:05 Ur Leukocyte Esterase Neg (Negative) 01/18/22 13:05 Urine WBC (Auto) < 1.0 /HPF (0.0-6.0) 01/18/22 13:05 Urine RBC (Auto) < 1.0 /HPF (0.0-6.0) 01/18/22 13:05 Urine Mucus Few /HPF 01/18/22 13:05 Short CBC 01/18/22 Range/Units 10:47 WBC 8.7 (4.5-11.0) K/mm3 Hgb 17.1 H (10.1-14.3) gm/dl Hct 56.5 H* (30.3-42.9) % Plt Count 174 (140-440) K/mm3 BMP 01/18/22 01/18/22 01/18/22 10:47 16:51 19:37 Sodium 133 L 134 L 134 L Potassium 5.3 H 6.7 H* D 5.1 H D Chloride 98.2 105.8 107.0 Carbon Dioxide 6 L* 4 L* 5 L* BUN 14 13 12 Creatinine 1.1 1.1 1.0 Glucose 495 H 386 H 291 H Calcium 9.3 8.3 L 8.5 01/18/22 23:37 Sodium 134 L Potassium 4.1 Chloride 104.7 Carbon Dioxide 8 L* BUN 12 Creatinine 1.0 Glucose 189 H Calcium 8.7 Liver Function 01/18/22 Range/Units 10:47 Total Bilirubin < 0.20 (0.1-1.2) mg/dL AST 24 (5-40) units/L ALT 27 (7-56) units/L Alkaline Phosphatase 178 H (35-129) units/L Albumin 4.6 (3.9-5) g/dL Urine 01/18/22 Range/Units 13:05 Urine Color Straw (Yellow) Urine pH 5.0 (5.0-7.0) Ur Specific [place] 1.015 (1.003-1.030) Urine Protein 30 mg/dl (Negative) mg/dL Urine Glucose (UA) >=500 (Negative) mg/dL Assessment and Plan Assessment and plan: Critical care statement The high probability OF a clinically significant sudden or life-threatening deterioration of the cardiorespiratory system and endocrine system required my full and direct attention, intervention and postoperative management. The aggregate critical care time was 32 minutes. The time is in addition to time spent performing reported procedures but includes the followin: Data review and interpretation 2: Patient assessment and monitoring of vital signs 3: Documentation 4:: Medication orders and management Advance Directives: Yes (Full code) VTE prophylaxis?: Chemical Plan of care discussed with patient/family: Yes - Patient Problems (1) DKA (diabetic ketoacidoses) Current Visit: Yes Status: Acute Qualifiers: Diabetes mellitus type: other specified (including CODY) Diabetes mellitus complication detail: without coma Qualified Code(s): E13.10 - Other specified diabetes mellitus with ketoacidosis without coma Plan to address problem: DKA protocol. IV insulin for now Titrate to bring the blood sugars down to around 100-1 20 Correct metabolic abnormalities Patient has severe metabolic acidosis Anion gap to be corrected Patient initiated on Lantus Diabetes education to be done by primary team and nursing staff and dietitian (2) Metabolic acidosis Current Visit: Yes Status: Acute Plan to address problem: Severe Bicarbonate 6 Gap is 34 Sodium bicarbonate given (3) IDDM (insulin dependent diabetes mellitus) Current Visit: Yes Status: Chronic Plan to address problem: Totally uncontrolled A1c is running around 17 Patient needs continuous glucose monitoringwith with sari 2 or Dexcom (4) Hyponatremia Current Visit: Yes Status: Acute Plan to address problem: Should correct with correction of blood glucose levels (5) Hyperkalemia Current Visit: Yes Status: Acute Plan to address problem: Mild with potassium of 5.3 Should correct with correction of blood glucose levels and IV insulin (6) DVT prophylaxis Current Visit: Yes Status: Acute Plan to address problem: On heparin and GI prophylaxis (7) Advance care planning Current Visit: Yes Status: Acute Plan to address problem: Disease education conducted, care plan discussed, diagnosis discussed, prognosis discussed, patient is full code. Patient acknowledges understanding and agreement with care plan. +30 minutes.
[2022-01-19 00:15] LABS: BUN/Creatinine Ratio 12; Blood Urea Nitrogen 12 mg/dL (7-17); Calcium 8.7 mg/dL (8.4-10.2); Hemolysis Index 6
[2022-01-19] MEDS ORDERED: D5W/0.45% NACL 1,000 ML IV SCH (03:00)
[2022-01-19] MEDS ORDERED: SODIUM BICARB 8.4% 50 MEQ/50 ML SYRINGE IV ONE (06:52)
[2022-01-19] MEDS ORDERED: LACTATED RINGERS 1,000 ML IV ONE ×2 (07:45→14:57)
[2022-01-19] MEDS ORDERED: FAMOTIDINE 20 MG/2 ML INJ IV SCH (10:00)
[2022-01-19] MEDS ORDERED: SODIUM PHOSPHATE 30 MMOL in SODIUM CHLORIDE 0.9% 500 ML 500 ML IV SCH (10:00)
[2022-01-19] MEDS: D5W/0.45% NACL/KCL 20 MEQ 20 MEQ/1,000 ML BAG IV SCH ×2 (10:31→17:36)
[2022-01-19 12:07] LABS: BUN/Creatinine Ratio 13; Blood Urea Nitrogen 10 mg/dL (7-17); Calcium 8.4 mg/dL (8.4-10.2); Hemolysis Index 75
--- NOTE | 2022-01-19 12:08 | Consultation ---
History of Present Illness - Reason for Consult Consult date: 01/19/22 DKA - History of Present Illness 41-year-old female with history of diabetes and insulin-dependent presents with multiple aches and headache and generalized weakness. Also severe nausea but no vomiting. No fever or chills. Patient states that she has been compliant with her insulin. Patient is on glargine-Lantus 30 units in the morning and Humalog with before each meal. Her A1C is 17. 3 years ago on admission for dKA it was 11 Past History Past Medical History: diabetes Medications and Allergies Allergies Allergy/AdvReac Type Severity Reaction Status Date / Time sulfamethoxazole Allergy Anaphylaxis Verified 01/18/22 09:02 [From Bactrim] trimethoprim [From Bactrim] Allergy Anaphylaxis Verified 01/18/22 09:02 Home Medications Medication Instructions Recorded Confirmed Last Taken Type Acetaminophen [Acetaminophen TAB] 650 mg PO Q4H PRN #15 tablet 10/05/18 Unknown Rx Insulin Glargine [Lantus VIAL] 30 units SUB-Q QAMDIAB #1 vial 10/05/18 Unknown Rx Insulin Lispro [HumaLOG VIAL] 1 dose SQ AC PRN #1 vial 10/05/18 Unknown Rx Active Meds: Active Medications Acetaminophen (Acetaminophen 325 Mg Tab) 650 mg PO Q4H PRN PRN Reason: Pain MILD(1-3)/Fever >100.5/SANTOS Dextrose (Dextrose 50% In Water (25gm) 50 Ml Syringe) 0 ml IV Q30MIN PRN; Protocol PRN Reason: Hypoglycemia Famotidine (Famotidine 20 Mg/2 Ml Inj) 20 mg IV BID ASHA Last Admin: 01/19/22 10:30 Dose: 20 mg Insulin Human Regular 100 (units/ Sodium Chloride) 100 mls @ 1 mls/hr IV TITR ASHA; Protocol Last Titration: 01/19/22 10:57 Dose: 4 units/hr, 4 mls/hr Sodium Phosphate 30 mmol/ (Sodium Chloride) 510 mls @ 125 mls/hr IV ONCE@1000 ASHA Stop: 01/19/22 14:00 Potassium Chloride/Dextrose/Sod Cl (D5w/0.45% Nacl/Kcl 20 Meq) 20 meq in 1,000 mls @ 125 mls/hr IV DIRECT ASHA Last Admin: 01/19/22 10:31 Dose: 125 mls/hr Metoclopramide HCl (Metoclopramide 10 Mg/2 Ml Inj) 10 mg IV Q6H PRN PRN Reason: Nausea And Vomiting Morphine Sulfate (Morphine 2 Mg/1 Ml Inj) 2 mg IV Q4H PRN PRN Reason: Pain, Moderate (4-6) Ondansetron HCl (Ondansetron 4 Mg/2 Ml Inj) 4 mg IV Q3H PRN PRN Reason: Nausea And Vomiting Sodium Chloride (Sodium Chloride 0.9% 10 Ml Flush Syringe) 10 ml IV BID ASHA Last Admin: 01/19/22 10:31 Dose: 10 ml Sodium Chloride (Sodium Chloride 0.9% 10 Ml Flush Syringe) 10 ml IV PRN PRN PRN Reason: LINE FLUSH Review of Systems All systems: negative Exam - Constitutional Vitals: Temp Pulse Resp BP Pulse Ox 99 F 86 20 110/69 100 01/19/22 09:43 01/19/22 11:00 01/19/22 11:00 01/19/22 11:00 01/19/22 11:00 General appearance: Present: no acute distress, obese - Neck Neck: Present: supple Results - Labs CBC & Chem 7: 01/18/22 10:47 01/19/22 10:44 Labs: Abnormal lab results 01/18/22 01/18/22 01/18/22 Range/Units 12:08 13:57 16:00 VBG pH (7.320-7.420) Sodium (137-145) mmol/L Potassium (3.6-5.0) mmol/L Carbon Dioxide (22-30) mmol/L Glucose (65-100) mg/dL POC Glucose 376 H 407 H 389 H (70-105) mg/dL Hemoglobin A1c (4-6) % Calcium (8.4-10.2) mg/dL Phosphorus (2.5-4.5) mg/dL 01/18/22 01/18/22 01/18/22 Range/Units 16:51 16:51 17:04 VBG pH 7.041 L* (7.320-7.420) Sodium 134 L (137-145) mmol/L Potassium 6.7 H* D (3.6-5.0) mmol/L Carbon Dioxide 4 L* (22-30) mmol/L Glucose 386 H (65-100) mg/dL POC Glucose 344 H (70-105) mg/dL Hemoglobin A1c (4-6) % Calcium 8.3 L (8.4-10.2) mg/dL Phosphorus (2.5-4.5) mg/dL 01/18/22 01/18/22 01/18/22 Range/Units 18:10 19:12 19:37 VBG pH (7.320-7.420) Sodium 134 L (137-145) mmol/L Potassium 5.1 H D (3.6-5.0) mmol/L Carbon Dioxide 5 L* (22-30) mmol/L Glucose 291 H (65-100) mg/dL POC Glucose 363 H 307 H (70-105) mg/dL Hemoglobin A1c (4-6) % Calcium (8.4-10.2) mg/dL Phosphorus (2.5-4.5) mg/dL 01/18/22 01/18/22 01/18/22 Range/Units 21:00 23:03 23:37 VBG pH (7.320-7.420) Sodium 134 L (137-145) mmol/L Potassium (3.6-5.0) mmol/L Carbon Dioxide 8 L* (22-30) mmol/L Glucose 189 H (65-100) mg/dL POC Glucose 246 H 199 H (70-105) mg/dL Hemoglobin A1c (4-6) % Calcium (8.4-10.2) mg/dL Phosphorus (2.5-4.5) mg/dL 01/18/22 01/18/22 01/19/22 Range/Units 23:37 23:37 00:19 VBG pH (7.320-7.420) Sodium (137-145) mmol/L Potassium (3.6-5.0) mmol/L Carbon Dioxide (22-30) mmol/L Glucose (65-100) mg/dL POC Glucose 148 H (70-105) mg/dL Hemoglobin A1c 17.0 H (4-6) % Calcium (8.4-10.2) mg/dL Phosphorus 1.70 L D (2.5-4.5) mg/dL 01/19/22 01/19/22 01/19/22 Range/Units 02:09 07:24 08:18 VBG pH (7.320-7.420) Sodium (137-145) mmol/L Potassium (3.6-5.0) mmol/L Carbon Dioxide (22-30) mmol/L Glucose (65-100) mg/dL POC Glucose 137 H 284 H 213 H (70-105) mg/dL Hemoglobin A1c (4-6) % Calcium (8.4-10.2) mg/dL Phosphorus (2.5-4.5) mg/dL - Imaging and Cardiology Chest x-ray: image reviewed Assessment and Plan 41 y/o female with DKA 1. NPO 2. Continue IV insulin therapy until Anion Gap is closed 3. IVF's with normal saline until sugar is below 250 then will need to switch to D5 or D5 with K 4. Diabetic education 5. Weight loss 6. Guarded prognosis. CCT 31 minutes.
[2022-01-19 17:09] LABS: Blood Urea Nitrogen 7 mg/dL (7-17); Calcium 7.8 mg/dL (8.4-10.2); Hemolysis Index 34
--- NOTE | 2022-01-19 17:10 | Progress Note ---
Assessment and Plan Assessment and plan: This is a 41 year old female with IDDM and current nicotine abuse admitted with DKA Neuro: NAD -Reorientation as needed -Maintain sleep-wake cycle -As needed analgesia Cardiac: NAD -Blood pressure monitoring per protocol Respiratory: Current nicotine abuse -Currently on RA -Supplemental oxygenation as needed -SpO2 monitoring -[place] hygenie GI: Overweight -PPI -NPO -CC diet when able : High anion gap metabolic acidosis, pseudohyponatremia, hyperkalemia (resolved), hypophosphatemia -Monitor intake and output -LR bolus -Renally dose medications -Avoid nephrotoxic medications -Replete phosphate -Trend BMP ID: NAD -Monitor WBC and temperature curve Endo: DKA, h/o IDDM -Reports metformin and insulin use at home -Hgb A1C 17.0 -CCM consulted, appreciate recommendations -DKA protocol -Avoid hypoglycemia -Accu-Cheks per protocol -SSI and Long-acting insulin when appropiate Heme: Hemoconcentration -Trend CBC -Transfuse hemoglobin less than 7 -SCDs to BLE while in bed The high probability of a clinically significant, sudden or life threatening deterioration of the [endo] system(s) required my full and direct attention, intervention and personal management. The aggregate critical care time was [60] minutes. This time is in addition to time spent performing reported procedures but includes the following: [x] Data Review and interpretation [x] Patient assessment and monitoring of vital signs [x] Documentation [x] Medication orders and management Disposition Plan: icu Total Time Spent with Patient (Minutes): 60 History Interval history: This is a 41 year old female with IDDM and current nicotine abuse who presented to the ED with multiple body aches, headache and generlized weakness. Work up in the ED showed hyperkalemia, hemoconcentration, high anion gap metabolic acidosis, acidosis on VBG and ketones in urine consistent with DKA. Patient was admitted to the hospitalist service with consult to [facility] in DKA. Hospital course to date: 01/19: Remains on insulin gtt. Will give another LR bolus this afternoon. AG remains open. Continue monitoring. Hospitalist Physical - Constitutional Vitals: Temp Pulse Resp BP Pulse Ox 98.6 F 90 15 114/72 99 01/19/22 16:15 01/19/22 16:11 01/19/22 16:11 01/19/22 16:11 01/19/22 16:11 General appearance: Present: no acute distress, obese - EENT Eyes: Present: PERRL, EOM intact ENT: hearing intact, clear oral mucosa - Neck Neck: Present: normal ROM - Respiratory Respiratory effort: normal Respiratory: bilateral: CTA - Cardiovascular Rhythm: regular Heart Sounds: Present: S1 & S2. Absent: systolic murmur, diastolic murmur - Extremities Extremities: no ischemia, pulses intact, pulses symmetrical, No edema, normal temperature, normal color, Full ROM Peripheral Pulses: within normal limits - Abdominal General gastrointestinal: soft, non-tender, non-distended, normal bowel sounds - Integumentary Integumentary: Present: clear, warm, dry - Psychiatric Psychiatric: appropriate mood/affect, cooperative - Neurologic Neurologic: CNII-XII intact, moves all extremities - Allied Health Allied health notes reviewed: nursing, RT, social work Results - Labs CBC & Chem 7: 01/18/22 10:47 01/19/22 16:12 Labs: Laboratory Last Values WBC 8.7 K/mm3 (4.5-11.0) 01/18/22 10:47 RBC 6.04 M/mm3 (3.65-5.03) H 01/18/22 10:47 Hgb 17.1 gm/dl (10.1-14.3) H 01/18/22 10:47 Hct 56.5 % (30.3-42.9) H* 01/18/22 10:47 MCV 94 fl (79-97) 01/18/22 10:47 MCH 28 pg (28-32) 01/18/22 10:47 MCHC 30 % (30-34) 01/18/22 10:47 RDW 15.3 % (13.2-15.2) H 01/18/22 10:47 Plt Count 174 K/mm3 (140-440) 01/18/22 10:47 Lymph % (Auto) 9.4 % (13.4-35.0) L 01/18/22 10:47 [place] % (Auto) 8.7 % (0.0-7.3) H 01/18/22 10:47 Eos % (Auto) 0.0 % (0.0-4.3) 01/18/22 10:47 Baso % (Auto) 0.5 % (0.0-1.8) 01/18/22 10:47 Lymph # (Auto) 0.8 K/mm3 (1.2-5.4) L 01/18/22 10:47 [place] # (Auto) 0.8 K/mm3 (0.0-0.8) 01/18/22 10:47 Eos # (Auto) 0.0 K/mm3 (0.0-0.4) 01/18/22 10:47 Baso # (Auto) 0.0 K/mm3 (0.0-0.1) 01/18/22 10:47 Seg Neutrophils % 81.4 % (40.0-70.0) H 01/18/22 10:47 Seg Neutrophils # 7.1 K/mm3 (1.8-7.7) 01/18/22 10:47 VBG pH 7.041 (7.320-7.420) L* 01/18/22 16:51 Sodium 133 mmol/L (137-145) L 01/19/22 16:12 Potassium 3.9 mmol/L (3.6-5.0) 01/19/22 10:44 Chloride 105.7 mmol/L (98-107) 01/19/22 16:12 Carbon Dioxide 15 mmol/L (22-30) L 01/19/22 16:12 Anion Gap 16 mmol/L 01/19/22 16:12 BUN 7 mg/dL (7-17) 01/19/22 16:12 Creatinine 0.8 mg/dL (0.6-1.2) 01/19/22 10:44 Estimated GFR > 60 ml/min 01/19/22 10:44 BUN/Creatinine Ratio 13 % 01/19/22 10:44 Glucose 160 mg/dL (65-100) H 01/19/22 16:12 POC Glucose 195 mg/dL (70-105) H 01/19/22 09:28 Hemoglobin A1c 17.0 % (4-6) H 01/18/22 23:37 Calcium 7.8 mg/dL (8.4-10.2) L 01/19/22 16:12 Phosphorus 1.70 mg/dL (2.5-4.5) L D 01/18/22 23:37 Magnesium 1.80 mg/dL (1.7-2.3) 01/18/22 23:37 Total Bilirubin < 0.20 mg/dL (0.1-1.2) 01/18/22 10:47 AST 24 units/L (5-40) 01/18/22 10:47 ALT 27 units/L (7-56) 01/18/22 10:47 Alkaline Phosphatase 178 units/L (35-129) H 01/18/22 10:47 Total Protein 9.0 g/dL (6.3-8.2) H 01/18/22 10:47 Albumin 4.6 g/dL (3.9-5) 01/18/22 10:47 Albumin/Globulin Ratio 1.0 % 01/18/22 10:47 Urine Color Straw (Yellow) 01/18/22 13:05 Urine Turbidity Clear (Clear) 01/18/22 13:05 Urine pH 5.0 (5.0-7.0) 01/18/22 13:05 Ur Specific [place] 1.015 (1.003-1.030) 01/18/22 13:05 Urine Protein 30 mg/dl mg/dL (Negative) 01/18/22 13:05 Urine Glucose (UA) >=500 mg/dL (Negative) 01/18/22 13:05 Urine Ketones 80 mg/dL (Negative) 01/18/22 13:05 Urine Blood Sm (Negative) 01/18/22 13:05 Urine Nitrite Neg (Negative) 01/18/22 13:05 Urine Bilirubin Neg (Negative) 01/18/22 13:05 Urine Urobilinogen < 2.0 mg/dL (<2.0) 01/18/22 13:05 Ur Leukocyte Esterase Neg (Negative) 01/18/22 13:05 Urine WBC (Auto) < 1.0 /HPF (0.0-6.0) 01/18/22 13:05 Urine RBC (Auto) < 1.0 /HPF (0.0-6.0) 01/18/22 13:05 Urine Mucus Few /HPF 01/18/22 13:05 Active Medications - Current Medications Current Medications: Generic Name Dose Route Start Last Admin Trade Name Freq PRN Reason Stop Dose Admin Acetaminophen 650 mg 01/18/22 22:51 Acetaminophen 325 Mg Tab PO Q4H PRN Pain MILD(1-3)/Fever >100.5/SANTOS Dextrose 0 ml 01/18/22 14:48 Dextrose 50% In Water (25gm) 50 Ml Syringe IV Q30MIN PRN Hypoglycemia Protocol Famotidine 20 mg 01/19/22 10:00 01/19/22 10:30 Famotidine 20 Mg/2 Ml Inj IV 20 mg BID ASHA Administration Heparin Sodium (Porcine) 5,000 unit 01/19/22 22:00 Heparin 5,000 Unit/1 Ml Vial SUB-Q Q12HR ASHA Insulin Human Regular 100 100 mls @ 1 mls/hr 01/18/22 23:00 01/19/22 16:12 units/ Sodium Chloride IV 4 units/hr TITR ASHA 4 mls/hr Titration Protocol 1 UNITS/HR Potassium Chloride/Dextrose/Sod Cl 20 meq in 1,000 mls @ 125 mls/hr 01/19/22 10:00 01/19/22 10:31 D5w/0.45% Nacl/Kcl 20 Meq IV 125 mls/hr DIRECT ASHA Administration Metoclopramide HCl 10 mg 01/18/22 22:51 Metoclopramide 10 Mg/2 Ml Inj IV Q6H PRN Nausea And Vomiting Morphine Sulfate 2 mg 01/18/22 22:51 Morphine 2 Mg/1 Ml Inj IV Q4H PRN Pain, Moderate (4-6) Ondansetron HCl 4 mg 01/18/22 22:51 Ondansetron 4 Mg/2 Ml Inj IV Q3H PRN Nausea And Vomiting Sodium Chloride 10 ml 01/19/22 10:00 01/19/22 10:31 Sodium Chloride 0.9% 10 Ml Flush Syringe IV 10 ml BID ASHA Administration Sodium Chloride 10 ml 01/18/22 22:51 Sodium Chloride 0.9% 10 Ml Flush Syringe IV PRN PRN LINE FLUSH
[2022-01-19 17:11] LABS: BUN/Creatinine Ratio 10
[2022-01-19] MEDS ORDERED: SODIUM PHOSPHATE 30 MMOL in SODIUM CHLORIDE 0.9% 500 ML 500 ML IV ONE (17:27)
[2022-01-19] MEDS ORDERED: DEXTROSE 50% IN WATER (25GM) 50 ML SYRINGE IV PRN (17:36)
[2022-01-19] MEDS ORDERED: POTASSIUM PHOSPHATE 30 MMOL in SODIUM CHLORIDE 0.9% 500 ML 500 ML IV ONE (17:42)
[2022-01-19] MEDS ORDERED: INSULIN GLARGINE 100 UNITS/ML SUB-Q ONE (18:00)
[2022-01-19] MEDS: INSULIN LISPRO 100 UNIT/ML SUB-Q SCH (21:20)
[2022-01-19] MEDS: ENOXAPARIN 40 MG/0.4 ML INJ SUB-Q SCH (21:20)
[2022-01-19] MEDS: FAMOTIDINE 20 MG TAB PO SCH (21:23)
[2022-01-19] MEDS ORDERED: HEPARIN 5,000 UNIT/1 ML VIAL SUB-Q SCH (22:00)
[2022-01-20 05:52] LABS: Blood Urea Nitrogen 4 mg/dL (7-17); Calcium 7.9 mg/dL (8.4-10.2); Hemolysis Index 12
[2022-01-20 05:56] LABS: BUN/Creatinine Ratio 6
[2022-01-20] MEDS ORDERED: LACTATED RINGERS 1,000 ML IV ONE ×2 (07:30→14:00)
[2022-01-20] MEDS ORDERED: POTASSIUM PHOSPHATE 30 MMOL in SODIUM CHLORIDE 0.9% 500 ML 500 ML IV SCH (08:00)
[2022-01-20] MEDS ORDERED: MAGNESIUM SULFATE 2 GM/50 ML BAG IV SCH (08:00)
[2022-01-20] MEDS: INSULIN LISPRO 100 UNIT/ML SUB-Q SCH ×2 (08:25→11:54)
--- NOTE | 2022-01-20 11:54 | Progress Note ---
Assessment and Plan 41 y/o female with DKA 01/20/22: Follow up repeat chemistry, if gap closed, can transition to floor. 1. NPO 2. Continue IV insulin therapy until Anion Gap is closed 3. IVF's with normal saline until sugar is below 250 then will need to switch to D5 or D5 with K 4. Diabetic education 5. Weight loss 6. Guarded prognosis. CCT 31 minutes. Subjective Date of service: 01/20/22 Interval history: Gap closed but started trending back up. Awaiting repeat chemistry Objective - Constitutional Vitals: Vital Signs - 12hr 01/20/22 01/20/22 01/20/22 00:00 00:11 00:21 Temperature 98.0 F Pulse Rate 75 80 67 Pulse Rate [ From Monitor] Respiratory 15 20 15 Rate Respiratory Rate [Head] Blood Pressure 112/75 112/75 112/75 O2 Sat by Pulse 99 100 99 Oximetry 01/20/22 01/20/22 01/20/22 00:22 00:31 00:35 Temperature Pulse Rate 88 88 88 Pulse Rate [ From Monitor] Respiratory 17 Rate Respiratory Rate [Head] Blood Pressure 112/75 O2 Sat by Pulse 99 Oximetry 01/20/22 01/20/22 01/20/22 00:41 00:51 01:00 Temperature Pulse Rate 79 73 74 Pulse Rate [ From Monitor] Respiratory 16 15 17 Rate Respiratory 16 Rate [Head] Blood Pressure 112/75 112/75 104/72 O2 Sat by Pulse 100 99 98 Oximetry 01/20/22 01/20/22 01/20/22 01:11 01:21 01:31 Temperature Pulse Rate 70 62 64 Pulse Rate [ From Monitor] Respiratory 18 18 18 Rate Respiratory Rate [Head] Blood Pressure 104/72 104/72 104/72 O2 Sat by Pulse 100 99 100 Oximetry 01/20/22 01/20/22 01/20/22 01:41 01:51 02:00 Temperature Pulse Rate 68 69 73 Pulse Rate [ From Monitor] Respiratory 18 18 20 Rate Respiratory Rate [Head] Blood Pressure 104/72 104/72 111/73 O2 Sat by Pulse 99 99 99 Oximetry 01/20/22 01/20/22 01/20/22 02:11 02:21 02:31 Temperature Pulse Rate 74 78 79 Pulse Rate [ From Monitor] Respiratory 17 14 17 Rate Respiratory Rate [Head] Blood Pressure 111/73 111/73 111/73 O2 Sat by Pulse 99 99 98 Oximetry 01/20/22 01/20/22 01/20/22 02:41 02:51 03:00 Temperature Pulse Rate 85 78 71 Pulse Rate [ From Monitor] Respiratory 15 14 13 Rate Respiratory Rate [Head] Blood Pressure 111/73 111/73 96/58 O2 Sat by Pulse 98 98 99 Oximetry 01/20/22 01/20/22 01/20/22 03:11 03:21 03:31 Temperature Pulse Rate 80 77 83 Pulse Rate [ From Monitor] Respiratory 14 16 13 Rate Respiratory Rate [Head] Blood Pressure 96/58 96/58 96/58 O2 Sat by Pulse 99 99 99 Oximetry 01/20/22 01/20/22 01/20/22 03:41 03:51 04:00 Temperature Pulse Rate 70 67 64 Pulse Rate [ From Monitor] Respiratory 14 14 12 Rate Respiratory Rate [Head] Blood Pressure 96/58 96/58 100/65 O2 Sat by Pulse 99 99 99 Oximetry 01/20/22 01/20/22 01/20/22 04:11 04:21 04:31 Temperature Pulse Rate 94 H 74 67 Pulse Rate [ From Monitor] Respiratory 16 14 13 Rate Respiratory Rate [Head] Blood Pressure 100/65 100/65 100/65 O2 Sat by Pulse 100 100 100 Oximetry 01/20/22 01/20/22 01/20/22 04:41 04:50 04:55 Temperature 98.0 F Pulse Rate 64 65 Pulse Rate [ From Monitor] Respiratory 13 18 Rate Respiratory Rate [Head] Blood Pressure 100/65 100/65 O2 Sat by Pulse 100 99 Oximetry 01/20/22 01/20/22 01/20/22 05:00 05:10 05:21 Temperature Pulse Rate 77 87 67 Pulse Rate [ From Monitor] Respiratory 16 14 18 Rate Respiratory Rate [Head] Blood Pressure 100/65 O2 Sat by Pulse 99 100 100 Oximetry 01/20/22 01/20/22 01/20/22 05:31 05:41 05:51 Temperature Pulse Rate 73 75 71 Pulse Rate [ From Monitor] Respiratory 13 17 18 Rate Respiratory Rate [Head] Blood Pressure 119/78 119/78 119/78 O2 Sat by Pulse 99 100 99 Oximetry 01/20/22 01/20/22 01/20/22 06:00 06:11 06:21 Temperature Pulse Rate 72 70 75 Pulse Rate [ From Monitor] Respiratory 16 17 19 Rate Respiratory Rate [Head] Blood Pressure 117/69 117/69 117/69 O2 Sat by Pulse 100 99 99 Oximetry 01/20/22 01/20/22 01/20/22 06:31 06:41 07:00 Temperature Pulse Rate 73 66 66 Pulse Rate [ From Monitor] Respiratory 17 13 16 Rate Respiratory Rate [Head] Blood Pressure 117/69 117/69 119/79 O2 Sat by Pulse 100 100 99 Oximetry 01/20/22 01/20/22 01/20/22 07:52 08:00 08:07 Temperature 99.4 F Pulse Rate Pulse Rate [ 77 From Monitor] Respiratory 17 Rate Respiratory Rate [Head] Blood Pressure 119/79 O2 Sat by Pulse 100 98 Oximetry 01/20/22 01/20/22 01/20/22 09:00 10:01 11:00 Temperature Pulse Rate 65 67 66 Pulse Rate [ From Monitor] Respiratory 17 21 19 Rate Respiratory Rate [Head] Blood Pressure 120/77 120/77 107/74 O2 Sat by Pulse 99 99 100 Oximetry - Labs CBC & Chem 7: 01/18/22 10:47 01/20/22 05:09 Labs: Abnormal lab results 01/19/22 01/19/22 01/19/22 Range/Units 09:28 10:44 16:12 Sodium 131 L 133 L (137-145) mmol/L Potassium 3.4 L (3.6-5.0) mmol/L Carbon Dioxide 11 L 15 L (22-30) mmol/L BUN (7-17) mg/dL Glucose 210 H 160 H (65-100) mg/dL POC Glucose 195 H (70-105) mg/dL Calcium 7.8 L (8.4-10.2) mg/dL Phosphorus (2.5-4.5) mg/dL Magnesium (1.7-2.3) mg/dL 01/19/22 01/20/22 Range/Units 16:12 05:09 Sodium (137-145) mmol/L Potassium 3.3 L (3.6-5.0) mmol/L Carbon Dioxide 18 L (22-30) mmol/L BUN 4 L (7-17) mg/dL Glucose 146 H (65-100) mg/dL POC Glucose (70-105) mg/dL Calcium 7.9 L (8.4-10.2) mg/dL Phosphorus 2.20 L D 2.30 L (2.5-4.5) mg/dL Magnesium 1.40 L (1.7-2.3) mg/dL Medications & Allergies - Medications Allergies/Adverse Reactions: Allergies sulfamethoxazole [From Bactrim] Allergy (Verified 01/18/22 09:02) Anaphylaxis trimethoprim [From Bactrim] Allergy (Verified 01/18/22 09:02) Anaphylaxis Home Medications: Home Medications Medication Instructions Recorded Confirmed Last Taken Type Acetaminophen [Acetaminophen TAB] 650 mg PO Q4H PRN #15 tablet 10/05/18 Unknown Rx Insulin Glargine [Lantus VIAL] 30 units SUB-Q QAMDIAB #1 vial 10/05/18 Unknown Rx Insulin Lispro [HumaLOG VIAL] 1 dose SQ AC PRN #1 vial 10/05/18 Unknown Rx Insulin Glulisine [Apidra] 5 units SQ ACHS 01/19/22 01/19/22 2 Days Ago History ~01/17/22 5 metFORMIN [Glucophage] 500 mg PO QDAY 01/19/22 01/19/22 1 Week Ago History ~01/12/22 500 Active Medications: Generic Name Dose Route Start Last Admin Trade Name Freq PRN Reason Stop Dose Admin Acetaminophen 650 mg 01/18/22 22:51 Acetaminophen 325 Mg Tab PO Q4H PRN Pain MILD(1-3)/Fever >100.5/SANTOS Dextrose 50 ml 01/19/22 17:36 Dextrose 50% In Water (25gm) 50 Ml Syringe IV Q30MIN PRN Hypoglycemia Protocol Enoxaparin Sodium 40 mg 01/19/22 22:00 01/19/22 21:20 Enoxaparin 40 Mg/0.4 Ml Inj SUB-Q 40 mg QDAY@2200 ASHA Administration Protocol Famotidine 40 mg 01/19/22 22:00 01/19/22 21:23 Famotidine 20 Mg Tab PO 40 mg QHS ASHA Administration Magnesium Sulfate 2 gm in 50 mls @ 25 mls/hr 01/20/22 08:00 01/20/22 09:59 Magnesium Sulfate 2gm/50ml IV 01/20/22 12:00 25 mls/hr ONCE@0800 ASHA Administration Potassium Phosphate 30 mmol/ 510 mls @ 85 mls/hr 01/20/22 08:00 01/20/22 10:52 Sodium Chloride IV 01/20/22 14:00 85 mls/hr ONCE@0800 [facility] Administration Insulin Glargine 30 units 01/20/22 22:00 Insulin Glargine 100 Units/Ml SUB-Q QHS [facility] Insulin Human Lispro 0 unit 01/19/22 22:00 01/20/22 08:25 Insulin Lispro 100 Unit/Ml SUB-Q 2 unit ACHS [facility] Administration Protocol Metoclopramide HCl 10 mg 01/18/22 22:51 Metoclopramide 10 Mg/2 Ml Inj IV Q6H PRN Nausea And Vomiting Morphine Sulfate 2 mg 01/18/22 22:51 Morphine 2 Mg/1 Ml Inj IV Q4H PRN Pain, Moderate (4-6) Ondansetron HCl 4 mg 01/18/22 22:51 Ondansetron 4 Mg/2 Ml Inj IV Q3H PRN Nausea And Vomiting Sodium Chloride 10 ml 01/19/22 10:00 01/20/22 10:01 Sodium Chloride 0.9% 10 Ml Flush Syringe IV 10 ml BID ASHA Administration Sodium Chloride 10 ml 01/18/22 22:51 Sodium Chloride 0.9% 10 Ml Flush Syringe IV PRN PRN LINE FLUSH
[2022-01-20 12:58] LABS: BUN/Creatinine Ratio 7; Blood Urea Nitrogen 4 mg/dL (7-17); Calcium 8.3 mg/dL (8.4-10.2); Hemolysis Index 10
[2022-01-20] MEDS: POTASSIUM CHLORIDE ER 20 MEQ TAB PO SCH ×2 (14:24→17:12)
--- NOTE | 2022-01-20 15:00 | Progress Note ---
Assessment and Plan Assessment and plan: This is a 41 year old female with IDDM and current nicotine abuse admitted with DKA Neuro: NAD -Reorientation as needed -Maintain sleep-wake cycle -As needed analgesia Cardiac: NAD -Blood pressure monitoring per protocol Respiratory: Current nicotine abuse -Currently on RA -Supplemental oxygenation as needed -SpO2 monitoring -Pulmonary hygiene GI: Overweight -PPI -CC diet when able -BR if needed : High anion gap metabolic acidosis (improved), hypokalemia, hypophosphatemia, hypomagnesiumia -Monitor intake and output -s/p LR bolus x3 -Renally dose medications -Avoid nephrotoxic medications -Replete phosphate, magnesium and potassium -Trend BMP ID: NAD -Monitor WBC and temperature curve Endo: s/p DKA, h/o IDDM -Reports metformin and insulin use at home -Hgb A1C 17.0 -CCM consulted, appreciate recommendations -s/p DKA protocol -restarted on protocol this pm despite attempts to correct with IVF -NPO -Avoid hypoglycemia -Accu-Cheks AC per protocol Heme: NAD -Trend CBC -Transfuse hemoglobin less than 7 -SCDs to BLE while in bed The high probability of a clinically significant, sudden or life threatening deterioration of the [endo] system(s) required my full and direct attention, intervention and personal management. The aggregate critical care time was [60] minutes. This time is in addition to time spent performing reported procedures but includes the following: [x] Data Review and interpretation [x] Patient assessment and monitoring of vital signs [x] Documentation [x] Medication orders and management Disposition Plan: icu Total Time Spent with Patient (Minutes): 60 History Interval history: This is a 41 year old female with IDDM and current nicotine abuse who presented to the ED with multiple body aches, headache and generlized weakness. Work up in the ED showed hyperkalemia, hemoconcentration, high anion gap metabolic acidosis, acidosis on VBG and ketones in urine consistent with DKA. Patient was admitted to the hospitalist service with consult to CCM in DKA. Hospital course to date: 01/19: Remains on insulin gtt. Will give another LR bolus this afternoon. AG remains open. Continue monitoring. 01/20: Patient's anion gap noted to be 17, and noted to be hyperkalemic. Potassium repleted and given 1 L LR bolus this AM. Repeat BMP shows anion gap 17. We will repeat another LR bolus and repeat BMP this evening. Patient also noted to be hypokalemic and hypophosphatemic which was repleted with K-Phos and hypomagnesemic which was repleted with magnesium. Restarted on DKA protocol Hospitalist Physical - Constitutional Vitals: Temp Pulse Resp BP Pulse Ox 98.2 F 68 14 115/70 99 01/20/22 11:56 01/20/22 14:00 01/20/22 14:00 01/20/22 14:00 01/20/22 14:00 General appearance: Present: no acute distress, obese - EENT Eyes: Present: PERRL, EOM intact ENT: hearing intact, clear oral mucosa, dentition normal - Neck Neck: Present: supple, normal ROM - Respiratory Respiratory effort: normal Respiratory: bilateral: CTA - Cardiovascular Rhythm: regular Heart Sounds: Present: S1 & S2. Absent: systolic murmur, diastolic murmur - Extremities Extremities: no ischemia, pulses intact, pulses symmetrical, No edema, normal temperature, normal color, Full ROM Peripheral Pulses: within normal limits - Abdominal General gastrointestinal: soft, non-tender, non-distended, normal bowel sounds - Integumentary Integumentary: Present: warm, dry - Psychiatric Psychiatric: cooperative - Neurologic Neurologic: CNII-XII intact, no focal deficits, moves all extremities - Allied Health Allied health notes reviewed: nursing, RT, social work Results - Labs CBC & Chem 7: 01/18/22 10:47 01/20/22 11:22 Labs: Laboratory Last Values WBC 8.7 K/mm3 (4.5-11.0) 01/18/22 10:47 RBC 6.04 M/mm3 (3.65-5.03) H 01/18/22 10:47 Hgb 17.1 gm/dl (10.1-14.3) H 01/18/22 10:47 Hct 56.5 % (30.3-42.9) H* 01/18/22 10:47 MCV 94 fl (79-97) 01/18/22 10:47 MCH 28 pg (28-32) 01/18/22 10:47 MCHC 30 % (30-34) 01/18/22 10:47 RDW 15.3 % (13.2-15.2) H 01/18/22 10:47 Plt Count 174 K/mm3 (140-440) 01/18/22 10:47 Lymph % (Auto) 9.4 % (13.4-35.0) L 01/18/22 10:47 [place] % (Auto) 8.7 % (0.0-7.3) H 01/18/22 10:47 Eos % (Auto) 0.0 % (0.0-4.3) 01/18/22 10:47 Baso % (Auto) 0.5 % (0.0-1.8) 01/18/22 10:47 Lymph # (Auto) 0.8 K/mm3 (1.2-5.4) L 01/18/22 10:47 [place] # (Auto) 0.8 K/mm3 (0.0-0.8) 01/18/22 10:47 Eos # (Auto) 0.0 K/mm3 (0.0-0.4) 01/18/22 10:47 Baso # (Auto) 0.0 K/mm3 (0.0-0.1) 01/18/22 10:47 Seg Neutrophils % 81.4 % (40.0-70.0) H 01/18/22 10:47 Seg Neutrophils # 7.1 K/mm3 (1.8-7.7) 01/18/22 10:47 VBG pH 7.041 (7.320-7.420) L* 01/18/22 16:51 Sodium 136 mmol/L (137-145) L 01/20/22 11:22 Potassium 2.8 mmol/L (3.6-5.0) L* 01/20/22 11:22 Chloride 101.7 mmol/L (98-107) 01/20/22 11:22 Carbon Dioxide 18 mmol/L (22-30) L 01/20/22 11:22 Anion Gap 19 mmol/L 01/20/22 11:22 BUN 4 mg/dL (7-17) L 01/20/22 11:22 Creatinine 0.6 mg/dL (0.6-1.2) 01/20/22 11:22 Estimated GFR > 60 ml/min 01/20/22 11:22 BUN/Creatinine Ratio 7 % 01/20/22 11:22 Glucose 164 mg/dL (65-100) H 01/20/22 11:22 POC Glucose 195 mg/dL (70-105) H 01/19/22 09:28 Hemoglobin A1c 17.0 % (4-6) H 01/18/22 23:37 Calcium 8.3 mg/dL (8.4-10.2) L 01/20/22 11:22 Phosphorus 2.30 mg/dL (2.5-4.5) L 01/20/22 05:09 Magnesium 1.40 mg/dL (1.7-2.3) L 01/20/22 05:09 Total Bilirubin < 0.20 mg/dL (0.1-1.2) 01/18/22 10:47 AST 24 units/L (5-40) 01/18/22 10:47 ALT 27 units/L (7-56) 01/18/22 10:47 Alkaline Phosphatase 178 units/L (35-129) H 01/18/22 10:47 Total Protein 9.0 g/dL (6.3-8.2) H 01/18/22 10:47 Albumin 4.6 g/dL (3.9-5) 01/18/22 10:47 Albumin/Globulin Ratio 1.0 % 01/18/22 10:47 Urine Color Straw (Yellow) 01/18/22 13:05 Urine Turbidity Clear (Clear) 01/18/22 13:05 Urine pH 5.0 (5.0-7.0) 01/18/22 13:05 Ur Specific [place] 1.015 (1.003-1.030) 01/18/22 13:05 Urine Protein 30 mg/dl mg/dL (Negative) 01/18/22 13:05 Urine Glucose (UA) >=500 mg/dL (Negative) 01/18/22 13:05 Urine Ketones 80 mg/dL (Negative) 01/18/22 13:05 Urine Blood Sm (Negative) 01/18/22 13:05 Urine Nitrite Neg (Negative) 01/18/22 13:05 Urine Bilirubin Neg (Negative) 01/18/22 13:05 Urine Urobilinogen < 2.0 mg/dL (<2.0) 01/18/22 13:05 Ur Leukocyte Esterase Neg (Negative) 01/18/22 13:05 Urine WBC (Auto) < 1.0 /HPF (0.0-6.0) 01/18/22 13:05 Urine RBC (Auto) < 1.0 /HPF (0.0-6.0) 01/18/22 13:05 Urine Mucus Few /HPF 01/18/22 13:05 Ty/IV: Voiding Method Bedside Commode Active Medications - Current Medications Current Medications: Generic Name Dose Route Start Last Admin Trade Name Freq PRN Reason Stop Dose Admin Acetaminophen 650 mg 01/18/22 22:51 01/20/22 13:28 Acetaminophen 325 Mg Tab PO 650 mg Q4H PRN Administration Pain MILD(1-3)/Fever >100.5/SANTOS Dextrose 50 ml 01/19/22 17:36 Dextrose 50% In Water (25gm) 50 Ml Syringe IV Q30MIN PRN Hypoglycemia Protocol Enoxaparin Sodium 40 mg 01/19/22 22:00 01/19/22 21:20 Enoxaparin 40 Mg/0.4 Ml Inj SUB-Q 40 mg QDAY@2200 [facility] Administration Protocol Famotidine 40 mg 01/19/22 22:00 01/19/22 21:23 Famotidine 20 Mg Tab PO 40 mg QHS ASHA Administration Potassium Chloride 10 meq in 100 mls @ 100 mls/hr 01/20/22 14:00 Kcl 10meq/100ml IV 01/20/22 15:59 Q1H ASHA Lactated Ringer's 1,000 mls @ 999 mls/hr 01/20/22 14:00 01/20/22 14:24 Lactated Ringers IV 01/20/22 15:00 999 mls/hr BOLUS ONE Administration Insulin Glargine 35 units 01/20/22 22:00 Insulin Glargine 100 Units/Ml SUB-Q QHS ASHA Insulin Human Lispro 0 unit 01/19/22 22:00 01/20/22 11:54 Insulin Lispro 100 Unit/Ml SUB-Q 2 unit ACHS [facility] Administration Protocol Metoclopramide HCl 10 mg 01/18/22 22:51 Metoclopramide 10 Mg/2 Ml Inj IV Q6H PRN Nausea And Vomiting Morphine Sulfate 2 mg 01/18/22 22:51 Morphine 2 Mg/1 Ml Inj IV Q4H PRN Pain, Moderate (4-6) Ondansetron HCl 4 mg 01/18/22 22:51 Ondansetron 4 Mg/2 Ml Inj IV Q3H PRN Nausea And Vomiting Potassium Chloride 40 meq 01/20/22 14:00 01/20/22 14:24 Potassium Chloride Er 20 Meq Tab PO 01/20/22 18:01 40 meq Q4HR ASHA Administration Sodium Chloride 10 ml 01/19/22 10:00 01/20/22 10:01 Sodium Chloride 0.9% 10 Ml Flush Syringe IV 10 ml BID ASHA Administration Sodium Chloride 10 ml 01/18/22 22:51 Sodium Chloride 0.9% 10 Ml Flush Syringe IV PRN PRN LINE FLUSH
[2022-01-20] MEDS: POTASSIUM CHLORIDE 10 MEQ 10 MEQ/100 ML BAG IV SCH ×2 (15:24→16:26)
[2022-01-20] MEDS ORDERED: DEXTROSE 50% IN WATER (25GM) 50 ML SYRINGE IV PRN (15:45)
[2022-01-20] MEDS ORDERED: D5W/0.45% NACL/KCL 20 MEQ 20 MEQ/1,000 ML BAG IV SCH (16:00)
[2022-01-20] MEDS ORDERED: INSULIN REGULAR, HUMAN 100 UNITS in SODIUM CHLORIDE 0.9% 99 ML IV SCH (16:00)
[2022-01-20] MEDS: DEXTROSE 5% IN WATER 1,000 ML with POTASSIUM CHLORIDE 20 MEQ IV SCH (19:55)
[2022-01-20 20:58] LABS: Blood Urea Nitrogen 2 mg/dL (7-17); Calcium 7.8 mg/dL (8.4-10.2); Hemolysis Index 8
[2022-01-20 21:03] LABS: BUN/Creatinine Ratio 3
[2022-01-20] MEDS: FAMOTIDINE 20 MG TAB PO SCH (21:34)
[2022-01-20] MEDS: ENOXAPARIN 40 MG/0.4 ML INJ SUB-Q SCH (21:35)
[2022-01-20] MEDS ORDERED: INSULIN GLARGINE 100 UNITS/ML SUB-Q SCH ×2 (22:00)
[2022-01-20 22:02] LABS: Blood Urea Nitrogen 2 mg/dL (7-17); Calcium 7.8 mg/dL (8.4-10.2); Hemolysis Index 31
[2022-01-20 22:03] LABS: BUN/Creatinine Ratio 4
[2022-01-21 00:48] LABS: BUN/Creatinine Ratio 3; Blood Urea Nitrogen 2 mg/dL (7-17); Calcium 8.1 mg/dL (8.4-10.2); Hemolysis Index 17
[2022-01-21] MEDS: DEXTROSE 5% IN WATER 1,000 ML with POTASSIUM CHLORIDE 20 MEQ IV SCH (04:25)
[2022-01-21 07:21] VITALS: BP 120/78
[2022-01-21] MEDS ORDERED: DEXTROSE 50% IN WATER (25GM) 50 ML SYRINGE IV PRN (07:33)
[2022-01-21] MEDS ORDERED: INSULIN GLARGINE 100 UNITS/ML SUB-Q SCH (08:00)
[2022-01-21] MEDS ORDERED: LACTATED RINGERS 1,000 ML IV ONE (08:00)
--- NOTE | 2022-01-21 10:06 | Discharge Summary ---
Providers - Providers Date of Admission: 01/18/22 22:51 Date of discharge: 01/21/22 Attending physician: LAUREN AGUILAR MD 01/18/22 22:51 Consult to Physician [CONS] Routine Comment: noted/ sj Consulting Provider: CARLOS ORTIZ Physician Instructions: Reason For Exam: DKA Primary care physician: CLINT BARRETT Hospitalization Condition: Serious Hospital course: This is a 41 year old female with IDDM and current nicotine abuse who presented to the ED with multiple body aches, headache and generlized weakness. Work up in the ED showed hyperkalemia, hemoconcentration, high anion gap metabolic acidosis, acidosis on VBG and ketones in urine consistent with DKA. Patient was admitted to the hospitalist service with consult to CCM in DKA. On 01/19 patient was eventually able to be transitioned to SSI and long-acting insulin late in the evening after multiple for LR boluses. However on 12/20 patient's anion gap was again noted to be 17, hypokalemia, hypophosphatemic and hypomagnesemic. Patient was given 2 additional LR boluses however anion gap remains open and decision was made to place patient back on DKA protocol. Electrolytes were repleted. This morning patient anion gap was 15 and was ordered to be transitioned to SSI and long-acting insulin. However the patient refused lab work and eventually decided to leave AGAINST MEDICAL ADVICE despite multiple conversations with RN and BOTTOM PRESSER at bedside. IV removed and patient left AGAINST MEDICAL ADVICE. She stated that she will come back if she feels bad however she has bills that need to be paid. A/P Neuro: NAD -Reorientation as needed -Maintain sleep-wake cycle -As needed analgesia Cardiac: NAD -Blood pressure monitoring per protocol Respiratory: Current nicotine abuse -Currently on RA -Supplemental oxygenation as needed -SpO2 monitoring -Pulmonary hygiene GI: Overweight -PPI -CC diet when able -BR if needed : High anion gap metabolic acidosis (improved), hypokalemia, hypophosphatemia, hypomagnesiumia -Monitor intake and output -s/p LR bolus x3 -Renally dose medications -Avoid nephrotoxic medications -Replete phosphate, magnesium and potassium -Trend BMP ID: NAD -Monitor WBC and temperature curve Endo: s/p DKA, h/o IDDM -Reports metformin and insulin use at home -Hgb A1C 17.0 -CCM consulted, appreciate recommendations -s/p DKA protocol -restarted on protocol this pm despite attempts to correct with IVF -NPO -Avoid hypoglycemia -Accu-Cheks AC per protocol Heme: NAD -Trend CBC -Transfuse hemoglobin less than 7 -SCDs to BLE while in bed Disposition: LEFT AGAINST MEDICAL ADVICE Final Discharge Diagnosis (Prints w/discharge instructions): DKA Core Measure Documentation - Palliative Care Palliative Care/ Comfort Measures: Not Applicable - Core Measures Any of the following diagnoses?: history only Exam - Constitutional Vitals: Temp Pulse Resp BP Pulse Ox 98.6 F 94 H 16 120/78 99 01/21/22 04:27 01/21/22 07:12 01/21/22 07:12 01/21/22 07:21 01/21/22 07:12 Plan Follow up with: CLINT BARRETT MD [Primary Care Provider] - 3-5 Days
[2022-01-21] MEDS ORDERED: INSULIN LISPRO 100 UNIT/ML SUB-Q SCH (11:30)
== END 2022-01-21 08:42 | disposition left against medical advice (07) | DRG 639 ==
LOC: ED 08:59 → CC1 22:51
PROVIDERS: ADMIT Internal Medicine; ATTEND Internal Medicine
DX: E11.10 Type 2 diabetes mellitus with ketoacidosis without coma (principal); F17.200 Nicotine dependence, unspecified, uncomplicated; E87.5 Hyperkalemia; E83.39 Other disorders of phosphorus metabolism; E83.42 Hypomagnesemia
CPT/HCPCS: 36415; 71045; 80048; 80053; 81001; 82805; 82962; 83036; 83735; 84100; 85025; G0378; J3480; J3490; J7070; J7510; Q9967; J1644; J1650; J1815; J2405; J3475; J7030; J7040; J7120